=== PATIENT | female | born 1950 | race Hispanic/Latino ===

== ENCOUNTER → 2018-11-14 | Outpatient (CLI) | payer OTHER ==
[~2018-11-14] MED LIST: ATOR40TA71 PO; DIPH25CA7 PO; DONE10TA43 PO; ESCI10TA54 PO
== END | disposition home or self-care (01) ==
LOC: SHCH 07:57
PROVIDERS: ATTEND Internal Medicine Cardiovascular Disease
DX: I35.0 Nonrheumatic aortic (valve) stenosis (principal); I70.0 Atherosclerosis of aorta; Z95.0 Presence of cardiac pacemaker
CPT/HCPCS: 93306

== ENCOUNTER 2019-02-26 15:23 | Emergency (ER) | payer OTHER ==
[2019-02-26 15:48] LABS: EOSINOPHILS % (AUTO) 1.7 % (0.0-8.0); HEMATOCRIT 40.8 % (36-48); LYMPHOCYTES % (AUTO) 21.6 % (21.0-51.0); MEAN CORPUSCULAR HEMOGLOBIN 28.9 pg (27.0-33.0); MEAN CORPUSCULAR HGB CONC 33.5 g/dL (32.0-36.0); MEAN CORPUSCULAR VOLUME 86.3 fL (79-99); MONOCYTES % (AUTO) 7.5 % (3.0-13.0); NEUTROPHILS % (AUTO) 68.2 % (40.0-77.0); PLATELET COUNT (AUTO) 306 K/uL (130-400); RED BLOOD CELL COUNT(AUTO) 4.73 MIL/uL (4.00-5.50); RED CELL DISTRIBUTION WIDTH 13.6 % (11.0-15.5); WHITE BLOOD COUNT (AUTO) 11.2 K/uL (4.8-10.8)
[2019-02-26] MEDS ORDERED: NITROGLYCERIN 1GM/1 INCH PACKET TD ONE (15:48)
[2019-02-26 16:08] LABS: CREATININE 0.9 mg/dL (0.5-1.5); POTASSIUM 3.9 mmol/L (3.5-5.1)
[2019-02-26 16:11] LABS: INR 0.99 (0.85-1.15); PARTIAL THROMBOPLASTIN TIME 25.7 SEC (26.3-35.5); PROTHROMBIN TIME 10.4 SEC (9.6-11.6)
[2019-02-26 16:13] LABS: ALBUMIN 3.5 g/dL (3.5-5.0); BILIRUBIN,TOTAL 0.3 mg/dL (0.2-1.0); TOTAL PROTEIN, SERUM 7.6 g/dL (6.0-8.3)
== END 2019-02-26 20:28 | disposition home or self-care (01) ==
LOC: EDH 15:23
DX: R07.89 Other chest pain (principal); G30.9 Alzheimer's disease, unspecified; F02.80 Dementia in other diseases classified elsewhere, unspecified severity, without behavioral disturbance, psychotic disturbance, mood disturbance, and anxiety; Z88.6 Allergy status to analgesic agent
CPT/HCPCS: 36415; 71045; 80053; 82550; 84484; 85025; 85610; 85730; 93005

== ENCOUNTER → 2019-04-04 | Outpatient (CLI) | payer OTHER ==
[~2019-04-04] VITALS: Ht 157.5 cm; Wt 96.6 kg
[~2019-04-04] MED LIST changes: +REGADENOSON 0.4 MG/5 ML PF SYG IVP SCH
== END | disposition home or self-care (01) ==
LOC: SHCH 07:28
PROVIDERS: ATTEND Internal Medicine Cardiovascular Disease
DX: I25.10 Atherosclerotic heart disease of native coronary artery without angina pectoris (principal)
CPT/HCPCS: 78452; 93017; 96374; A9500 ×2; J2785

== ENCOUNTER → 2019-11-27 | Outpatient (CLI) | payer OTHER ==
[~2019-11-27] MED LIST changes: +DIPH25CA53 PO; -DIPH25CA7 PO; -REGADENOSON 0.4 MG/5 ML PF SYG IVP SCH
== END | disposition home or self-care (01) ==
LOC: SHCH 15:09
PROVIDERS: ATTEND Internal Medicine Cardiovascular Disease
DX: I35.0 Nonrheumatic aortic (valve) stenosis (principal); Z95.0 Presence of cardiac pacemaker
CPT/HCPCS: 93306

== ENCOUNTER 2019-12-11 07:00 | Day surgery (SDC) | payer OTHER ==
[2019-12-08 08:54] VITALS: BP 166/91
[2019-12-08 09:01] LABS: BASOPHILS % (AUTO) 0.6 % (0.0-5.0); HEMATOCRIT 42.6 % (36-48); LYMPHOCYTES % (AUTO) 21.9 % (21.0-51.0); MEAN CORPUSCULAR HEMOGLOBIN 28.2 pg (27.0-33.0); MEAN CORPUSCULAR HGB CONC 32.2 g/dL (32.0-36.0); MEAN CORPUSCULAR VOLUME 87.7 fL (79-99); MONOCYTES % (AUTO) 5.2 % (3.0-13.0); PLATELET COUNT (AUTO) 311 K/uL (130-400); RED BLOOD CELL COUNT(AUTO) 4.86 MIL/uL (4.00-5.50); WHITE BLOOD COUNT (AUTO) 8.7 K/uL (4.8-10.8)
[2019-12-08 09:01] LABS: APPEARANCE,URINE Clear (CLEAR); BILIRUBIN,URINE Negative (NEGATIVE); COLOR,URINE Yellow (YELLOW); GLUCOSE, URINE (UA) Negative (NEGATIVE); KETONES,URINE Negative (NEGATIVE); LEUKOCYTE ESTERASE ,URINE Moderate (NEGATIVE); NITRATE,URINE Negative (NEGATIVE); OCCULT BLOOD,URINE Negative (NEGATIVE); PH,URINE 7.5 (5.0-8.0); PROTEIN,URINE Negative (NEGATIVE)
[2019-12-08 09:09] LABS: CREATININE 0.8 mg/dL (0.5-1.5); POTASSIUM 4.3 mmol/L (3.5-5.1)
[2019-12-08 09:12] LABS: INR 1.02 (0.85-1.15); PARTIAL THROMBOPLASTIN TIME 26.1 SEC (26.3-35.5); PROTHROMBIN TIME 10.7 SEC (9.6-11.6)
[2019-12-08 09:14] LABS: BACTERIA,URINE Rare /HPF (None Seen); RBC,URINE 0-1 /HPF (0-1); SQUAMOUS EPITHELIAL CELL,UR Rare /HPF (0-2); WBC,URINE 0-1 /HPF (0-1)
[~2019-12-11] VITALS: Ht 162.6 cm; Wt 95.6 kg
[2019-12-11] VITALS (9 sets, daily range): BP systolic 124–151; BP diastolic 60–72
[~2019-12-11 07:00] MED LIST changes: +DIPH-764 PO; -DIPH25CA53 PO; -ESCI10TA54 PO; +MULT-1258 PO; +P-EP-94 PO; +milk thistle PO
--- NOTE | 2019-12-11 08:00 | NUR ---
PRE-PROCEDURE RECEIVED TO DAY 14 VIA AMBULATING FOR SCHEDULED LHC. AWAKE IN NO ACUTE DISTRESS. DENIES PAIN. PACEMAKER PRESENT TO LEFT UPPER CHEST WALL. CONNECTED TO CONTINUOUS CARDIOPULMONARY MONITORING. SIDE RAILS UP X2, BED IN LOWEST POSITION, AND CALL LIGHT W/IN REACH.
[2019-12-11] MEDS ORDERED: SODIUM CHLORIDE 0.9% 1000ML 1,000 ML IV ONE (08:13)
--- NOTE | 2019-12-11 09:40 | NUR ---
PROCEDURE TRANSFERRED TO BRANCH LENDING MANAGER VIA BED BY JS MANN RN. AWAKE IN NO ACUTE DISTRESS.
[2019-12-11] MEDS ORDERED: IOHEXOL 350 MG/ML 100ML INFUS..BTL IV ONE (09:57)
[2019-12-11] MEDS ORDERED: MIDAZOLAM HCL 1 MG/ML 2ML VIAL ONE (09:57)
[2019-12-11] MEDS ORDERED: HEPARIN SODIUM 1000UNIT/ML 10ML VIAL ONE (09:57)
[2019-12-11] MEDS ORDERED: LIDOCAINE HCL 2% 20ML ONE (09:58)
[2019-12-11] MEDS ORDERED: NITROGLYCERIN 50 MG/D5% WATER 1 BOT ONE (09:58)
--- NOTE | 2019-12-11 10:40 | NUR ---
POST-PROCEDURE RECEIVED FROM GLUE SPECIALTY SUPERVISOR VIA BED S/P [facility]. AWAKE IN NO ACUTE DISTRESS. DENIES PAIN. CONNECTED TO CONTINUOUS CARDIOPULMONARY MONITORING. CATH SITE W/ANGIOSEAL CLEAN, DRY, AND INTACT;SITE SOFT & NON-TENDER. EDUCATED PT AND SPOUSE ON IMPORTANCE OF KEEPING RIGHT LEG STRAIGHT AND FREE OF MOVEMENT AND HEAD FLAT. BOTH VERBALIZED UNDERSTANDING. SIDE RAILS UP X2, BED IN LOWEST POSITION, AND CALL LIGHT W/IN REACH.
--- NOTE | 2019-12-11 11:00 | NUR ---
DIET ATE 100% OF LUNCH.
--- NOTE | 2019-12-11 13:27 | NUR ---
ACTIVITY HEAD OF BED ELEVATED TO 30 DEGREES. CATH SITE WITH ANGIOSEAL CLEAN, DRY, AND INTACT;SITE SOFT,NON-TENDER.
--- NOTE | 2019-12-11 14:10 | NUR ---
ACTIVITY UP TO CHAIR WITH STANDBY ASSIST X1. GAIT STEADY. RIGHT FEMORAL CATH SITE W/ ANGIOSEAL CLEAN, DRY, AND INTACT;SITE SOFT,NON-TENDER.
--- NOTE | 2019-12-11 14:30 | NUR ---
DISCHARGE INSTRUCTIONS DAY PT DISCHARGE INSTRUCTION SHEET, MED REC, AND PT SUMMARY REVIEWED WITH PT AND SPOUSE. EDUCATED IF PUNCTURE SITE STARTS BLEEDING, APPLY DIRECT PRESSURE OVER THE AREA AND SEEK MEDICAL ATTENTION. BOTH VERBALIZED UNDERSTANDING. OPPORTUNITY GIVEN TO ASK QUESTIONS. QUESTIONS ADDRESSED.
--- NOTE | 2019-12-11 14:45 | NUR ---
DISCHARGE DISCHARGED VIA W/C. AWAKE IN NO ACUTE DISTRESS.
== END 2019-12-11 14:45 | disposition home or self-care (01) ==
LOC: DAH 07:00
PROVIDERS: ATTEND Internal Medicine Cardiovascular Disease
DX: I35.0 Nonrheumatic aortic (valve) stenosis (principal); I25.10 Atherosclerotic heart disease of native coronary artery without angina pectoris; I48.91 Unspecified atrial fibrillation; F32.9 Major depressive disorder, single episode, unspecified; F03.90 Unspecified dementia, unspecified severity, without behavioral disturbance, psychotic disturbance, mood disturbance, and anxiety; Z88.8 Allergy status to other drugs, medicaments and biological substances; Z88.2 Allergy status to sulfonamides; Z88.1 Allergy status to other antibiotic agents; Z95.0 Presence of cardiac pacemaker; Z79.899 Other long term (current) drug therapy; Z83.3 Family history of diabetes mellitus
CPT/HCPCS: 36415; 71045; 80048; 81001; 85025; 85610; 85730; 93005; 93454; A4215; A4216; A4221; A4222; A4223 ×2; A4606; A4663; C1760; C1894; J1644; J3490 ×2; J7030; Q9965; Q9967; J2250

== ENCOUNTER 2020-01-12 14:00 | Inpatient (IN) | payer OTHER ==
[~2020-01-12] VITALS: Ht 162.6 cm; Wt 95.2 kg
[2020-01-12 14:00] VITALS: BP 186/88
[2020-01-12 16:52] LABS: BASOPHILS % (AUTO) 0.4 % (0.0-5.0); EOSINOPHILS % (AUTO) 2.3 % (0.0-8.0); HEMATOCRIT 41.6 % (36-48); LYMPHOCYTES % (AUTO) 29.1 % (21.0-51.0); MEAN CORPUSCULAR HGB CONC 32.9 g/dL (32.0-36.0); MEAN CORPUSCULAR VOLUME 88.1 fL (79-99); MONOCYTES % (AUTO) 6.9 % (3.0-13.0); PLATELET COUNT (AUTO) 320 K/uL (130-400); RED BLOOD CELL COUNT(AUTO) 4.72 MIL/uL (4.00-5.50); RED CELL DISTRIBUTION WIDTH 12.8 % (11.0-15.5); WHITE BLOOD COUNT (AUTO) 9.2 K/uL (4.8-10.8)
[2020-01-12 17:06] LABS: PARTIAL THROMBOPLASTIN TIME 25.9 SEC (26.3-35.5); PROTHROMBIN TIME 10.8 SEC (9.6-11.6)
[2020-01-12 17:08] LABS: CREATININE 0.9 mg/dL (0.5-1.5); HEMOGLOBIN A1C 6.2 % (4.0-6.0); POTASSIUM 3.8 mmol/L (3.5-5.1)
[2020-01-15] VITALS (50 sets, daily range): BP systolic 105–193; BP diastolic 48–82
[2020-01-15] MEDS ORDERED: EPINEPHRINE 10 MG in SODIUM CHLORIDE 0.9% 240 ML IV PRN (06:15)
[2020-01-15] MEDS ORDERED: AMINOCAPROIC ACID 15,000 MG in SODIUM CHLORIDE 0.9% 500ML 420 ML IV PRN (06:15)
[2020-01-15] MEDS ORDERED: NOREPINEPHRINE BITARTRATE 8 MG in DEXTROSE 5%-WATER 250 ML IV PRN (06:15)
[2020-01-15] MEDS ORDERED: CEFUROXIME SODIUM 1.5 GM VIAL ONE (06:46)
[2020-01-15] MEDS ORDERED: SODIUM CHLORIDE 0.9% 1000ML 1,000 ML IV ONE (06:46)
--- NOTE | 2020-01-15 06:58 | NUR ---
POTENTIAL FOR INFECTION: SHAVED BILATERAL GROIN AREA TO ABOVE KNEE PER RENATA MARTINEZ, FOLLOWED BY WIPING WITH WILDER: 2% CHLORHEXIDINE GLUCONATE CLOTH PATIENTS PRE-OP SKIN PREP.
[2020-01-15] MEDS ORDERED: NITROGLYCERIN 50 MG/D5% WATER 1 BOT ONE (07:21)
[2020-01-15] MEDS ORDERED: CEFAZOLIN SODIUM 1 GM VIAL ONE (07:22)
[2020-01-15] MEDS ORDERED: SUFENTANIL CITRATE 50 MCG/ML AMP ONE (07:36)
[2020-01-15] MEDS ORDERED: MIDAZOLAM HCL 1 MG/ML 5ML VIAL ONE (07:36)
[2020-01-15] MEDS ORDERED: ROCURONIUM 10MG/1ML SYR 10 MG/ML ML ONE (07:40)
[2020-01-15] MEDS ORDERED: DELNIDO FORMULA 1 BAG IV ONE (07:44)
[2020-01-15] MEDS ORDERED: CEFUROXIME SODIUM 1.5 GM VIAL IVP ONE (08:00)
[2020-01-15 08:14] LABS: ABG BASE EXCESS -1.3 mmol/L (-2.0-3.0); ABG HCO3 23.5 mmol/L (21.0-28.0); ABG PCO2 40 mmHg (32-45)
[2020-01-15] MEDS ORDERED: SODIUM CHLORIDE 0.9% 500ML 500 ML IV SCH (08:17)
[2020-01-15] MEDS ORDERED: ALBUMIN (HUMAN) 5% 250 ML IV PRN (08:30)
[2020-01-15] MEDS ORDERED: NOREPINEPHRINE 4MG/NS 250ML 250 ML IV PRN (08:30)
[2020-01-15] MEDS ORDERED: MORPHINE SULFATE 2 MG/ML 1ML SYG IV PRN (08:30)
[2020-01-15] MEDS ORDERED: TRAMADOL HCL 50 MG TABLET PO PRN (08:30)
[2020-01-15] MEDS ORDERED: SODIUM CHLORIDE 0.9% 250 ML IV PRN (08:30)
[2020-01-15] MEDS ORDERED: AMINOCAPROIC ACID 15,000 MG in SODIUM CHLORIDE 0.9% 250 ML IV SCH (08:30)
[2020-01-15] MEDS ORDERED: GLUCAGON 1MG KIT 1 MG ML IM PRN (08:30)
[2020-01-15] MEDS ORDERED: PROPOFOL 1000 MG/100 ML 100 ML IV PRN (08:30)
[2020-01-15] MEDS ORDERED: EPINEPHRINE 10 MG in DEXTROSE 5%-WATER 250 ML IV PRN (08:30)
[2020-01-15] MEDS ORDERED: SODIUM CHLORIDE 0.9% 10 ML VIAL IVP PRN (08:30)
[2020-01-15] MEDS ORDERED: NITROGLYCERIN 50 MG/D5% WATER 250 BOT IV SCH (08:30)
[2020-01-15] MEDS ORDERED: ACETAMINOPHEN 650 MG SUPPOSITORY RC PRN (08:30)
[2020-01-15] MEDS ORDERED: MORPHINE SULFATE 4 MG/1ML SYG IV PRN (08:30)
[2020-01-15] MEDS ORDERED: SODIUM CHLORIDE 0.9% 1000ML 1,000 ML IV SCH (08:30)
[2020-01-15] MEDS ORDERED: POTASSIUM PHOS 15 mMOL+NS250ML 250 ML IV PRN (08:30)
[2020-01-15] MEDS ORDERED: ONDANSETRON HCL 4 MG/2 ML VIAL IV PRN (08:30)
[2020-01-15] MEDS ORDERED: ACETAMINOPHEN 325 MG TAB PO PRN ×2 (08:30)
[2020-01-15] MEDS ORDERED: DEXTROSE 50%-WATER 50 ML DISP.SYRIN IV PRN (08:30)
[2020-01-15] MEDS ORDERED: CALCIUM GLUCONATE 1 GM in SODIUM CHLORIDE 0.9% 50 ML IV PRN (08:30)
[2020-01-15] MEDS: FAMOTIDINE/PF 20 MG/2 ML VIAL IV SCH ×2 (09:00→20:34)
[2020-01-15 09:04] LABS: ABG BASE EXCESS -1.1 mmol/L (-2.0-3.0); ABG HCO3 23.2 mmol/L (21.0-28.0); ABG OXYGEN SATURATION 98.5 % (95.0-99.0); ABG PCO2 37 mmHg (32-45)
[2020-01-15] MEDS ORDERED: ROPIVACAINE 0.5% 5MG/ML 30ML IJ ONE (09:27)
[2020-01-15] MEDS ORDERED: PROTAMINE SULFATE 10 MG/ML 25ML VIAL IV ONE (09:40)
[2020-01-15] MEDS ORDERED: AMIODARONE HCL 50 MG/ML 3 ML VIAL ONE (09:41)
[2020-01-15] MEDS ORDERED: GLYCOPYRROLATE 1 MG/5 ML SYRINGE ONE (09:44)
[2020-01-15 09:47] LABS: ABG BASE EXCESS 4.3 mmol/L (-2.0-3.0); ABG HCO3 25.7 mmol/L (21.0-28.0); ABG OXYGEN SATURATION 98.5 % (95.0-99.0); ABG PCO2 27 mmHg (32-45)
[2020-01-15] MEDS: INSULIN REGULAR, HUMAN 3ML 100 UNIT in SODIUM CHLORIDE 0.9% 99 ML IV SCH ×2 (10:01)
[2020-01-15 10:19] LABS: ABG HCO3 20.3 mmol/L (21.0-28.0); ABG OXYGEN SATURATION 96.5 % (95.0-99.0); ABG PCO2 38 mmHg (32-45)
--- NOTE | 2020-01-15 10:43 | NUR ---
PT WAS ADMITTED TO ROOM 213 VIA CV BED AND WAS ACCOMPANIED BY DR. Garcia AND OR STAFF. PT WAS CONNECTED TO VENTILATOR AT PRESCRIBED SETTINGS AND TO HEPATOLOGIST. SEE DOCUMENTATION OF V/S AND ASSESSMENT.
[2020-01-15 11:05] LABS: ABG BASE EXCESS -1.4 mmol/L (-2.0-3.0); ABG HCO3 24.3 mmol/L (21.0-28.0); ABG OXYGEN SATURATION 96.3 % (95.0-99.0); ABG PCO2 45 mmHg (32-45)
--- NOTE | 2020-01-15 11:20 | NUR ---
PT'S IN TO SEE HER AND WAS ADVISED OF THE PRESENT STATUS AND WHEN HE COULD VISIT AGAIN UNTIL 9AM. WAS DISAPPOINTED THAT HE WOULD HAVE TO LEAVE AND UNABLE TO STAY AT HER SIDE, HE WAS ADVISED THAT HE COULD CALL AT ANY AND MANY TIMES HE WANTED TO CHECK ON HER. HIS CONCERN WAS THAT SHE HAS DEMENTIA AND WOULD BE SCARED IF HE WAS NOT AROUND. AGAIN HE WAS REASSURED OF THE ABILITY TO CHECK ON HER.
[2020-01-15 11:30] LABS: MEAN CORPUSCULAR HEMOGLOBIN 28.9 pg (27.0-33.0); MEAN CORPUSCULAR VOLUME 87.5 fL (79-99); PLATELET COUNT (AUTO) 164 K/uL (130-400); RED BLOOD CELL COUNT(AUTO) 3.77 MIL/uL (4.00-5.50); RED CELL DISTRIBUTION WIDTH 12.9 % (11.0-15.5)
[2020-01-15 11:34] LABS: WHITE BLOOD COUNT (AUTO) 30.6 K/uL (4.8-10.8)
[2020-01-15 11:43] LABS: INR 1.3 (0.85-1.15); PARTIAL THROMBOPLASTIN TIME 27.3 SEC (26.3-35.5); PROTHROMBIN TIME 13.9 SEC (9.6-11.6)
[2020-01-15 11:44] LABS: CREATININE 0.8 mg/dL (0.5-1.5); MAGNESIUM 2.4 mg/dL (1.80-2.40)
[2020-01-15] MEDS: POTASSIUM CHLORIDE 20MEQ/100ML 100 ML IV PRN ×4 (11:53→18:14)
[2020-01-15] MEDS ORDERED: ROPIVACAINE 0.2% 2MG/ML 100ML VIAL IJ ONE (12:00)
[2020-01-15] MEDS ORDERED: Q-PUMP 1 EACH IRRIG SCH (12:15)
[2020-01-15 12:31] LABS: ABG BASE EXCESS 2.1 mmol/L (-2.0-3.0); ABG HCO3 26.8 mmol/L (21.0-28.0); ABG OXYGEN SATURATION 97.9 % (95.0-99.0); ABG PCO2 42 mmHg (32-45)
[2020-01-15 12:33] LABS: BAND NEUTROPHILS % (MANUAL) 6 % (0-2); LYMPHOCYTES % (MANUAL) 10 % (22-44); MAN.DIFF COMMENT-IMPRESSION MANUAL DIFFERENTIAL; MONOCYTES % (MANUAL) 3 % (2-9); PLATELET MORPHOLOGY COMMENT ADEQUATE; SEGMENTED NEUTROPHILS % 81 % (40-70)
[2020-01-15] MEDS ORDERED: MANNITOL 25% 50ML VIAL IV ONE (13:16)
[2020-01-15] MEDS ORDERED: HEPARIN SODIUM 1000UNIT/ML 10ML VIAL IV ONE (13:16)
[2020-01-15] MEDS ORDERED: AMINOCAPROIC ACID 250 MG/ML 20 ML VIAL IV ONE (13:16)
[2020-01-15] MEDS ORDERED: CALCIUM CHLORIDE 100 MG/ML 10 ML SYG IVP ONE (13:16)
[2020-01-15] MEDS ORDERED: PHENYLEPHRINE HCL 10 MG/ML 1ML VIAL IV ONE (13:16)
[2020-01-15] MEDS ORDERED: MAGNESIUM SULFATE 1 GM/2 ML VIAL IM ONE (13:16)
[2020-01-15] MEDS ORDERED: SODIUM BICARB 8.4% 50ML SYRINGE IVP ONE (13:16)
[2020-01-15] MEDS ORDERED: ALBUMIN (HUMAN) 25% 50 ML IV ONE (13:16)
[2020-01-15] MEDS: CEFAZOLIN SODIUM 1 GM VIAL IV SCH ×2 (14:08→20:34)
[2020-01-15] MEDS ORDERED: IBUP-2784 PO (15:20)
[2020-01-15] MEDS ORDERED: TEA30SPR TP (15:20)
[2020-01-15] MEDS ORDERED: TRAZ-185 PO (15:20)
[2020-01-15 15:52] LABS: ABG BASE EXCESS -3.5 mmol/L (-2.0-3.0); ABG HCO3 22.2 mmol/L (21.0-28.0); ABG OXYGEN SATURATION 97.3 % (95.0-99.0); ABG PCO2 42 mmHg (32-45)
[2020-01-15] MEDS: SODIUM BICARB 50MEQ 50ML VIAL IV PRN ×2 (16:12→19:23)
[2020-01-15 18:02] LABS: CREATININE 1.3 mg/dL (0.5-1.5); POTASSIUM 3.4 mmol/L (3.5-5.1)
--- NOTE | 2020-01-15 19:00 | NUR ---
Received report from JUSTIN RN at 1900. Patient continues to be on ventilator, chest tube and galindo catheter in place, insulin, Epi and levo running into RIJ. Patient wakes up and responds appropriately, however, still lethargic and unable to systane wakefulness.
[2020-01-15 19:10] LABS: ABG BASE EXCESS -2.3 mmol/L (-2.0-3.0); ABG HCO3 23.4 mmol/L (21.0-28.0); ABG OXYGEN SATURATION 97.3 % (95.0-99.0); ABG PCO2 44 mmHg (32-45)
[2020-01-15] MEDS: ATORVASTATIN CALCIUM 40 MG TABLET PO SCH (20:34)
[2020-01-15] MEDS: DONEPEZIL HCL 5 MG TAB PO SCH (20:34)
[2020-01-15 21:05] LABS: ABG BASE EXCESS 2.2 mmol/L (-2.0-3.0); ABG HCO3 26.5 mmol/L (21.0-28.0); ABG OXYGEN SATURATION 96.2 % (95.0-99.0); ABG PCO2 40 mmHg (32-45)
--- NOTE | 2020-01-15 21:10 | NUR ---
Extubated patient to 40%Fio2 aerosol mask at 0. Tolerated procedure well.
--- NOTE | 2020-01-15 21:18 | NUR ---
Patient more alert at 194, vent rate dropped to 8 at 1954, to 6 at 2029 and 4 at 2044 as per protocol. Patient tolerated spontaneous breaths and VC and NIF was in parameters for extubation. Obtained an ABG at 2101 which was within parameters for extubation.
[2020-01-15 22:24] LABS: ABG BASE EXCESS 5.4 mmol/L (-2.0-3.0); ABG HCO3 31.1 mmol/L (21.0-28.0); ABG PCO2 50 mmHg (32-45)
[2020-01-16] VITALS (67 sets, daily range): BP systolic 111–176; BP diastolic 44–72
[2020-01-16 00:10] LABS: ABG BASE EXCESS 5.8 mmol/L (-2.0-3.0); ABG HCO3 31.1 mmol/L (21.0-28.0); ABG OXYGEN SATURATION 95.7 % (95.0-99.0); ABG PCO2 48 mmHg (32-45)
[2020-01-16 04:24] LABS: HEMATOCRIT 36.1 % (36-48); MEAN CORPUSCULAR HEMOGLOBIN 28.5 pg (27.0-33.0); MEAN CORPUSCULAR VOLUME 86.4 fL (79-99); PLATELET COUNT (AUTO) 85 K/uL (130-400); RED BLOOD CELL COUNT(AUTO) 4.18 MIL/uL (4.00-5.50); RED CELL DISTRIBUTION WIDTH 13.2 % (11.0-15.5); WHITE BLOOD COUNT (AUTO) 22.7 K/uL (4.8-10.8)
[2020-01-16] MEDS ORDERED: CALCIUM GLUCONATE 1 GM/10 ML VIAL IV ONE (04:32)
[2020-01-16 04:39] LABS: INR 1.05 (0.85-1.15); PARTIAL THROMBOPLASTIN TIME 24.8 SEC (26.3-35.5); PROTHROMBIN TIME 11.3 SEC (9.6-11.6)
[2020-01-16] MEDS: CEFAZOLIN SODIUM 1 GM VIAL IV SCH (04:45)
[2020-01-16 04:49] LABS: CREATININE 0.9 mg/dL (0.5-1.5); MAGNESIUM 1.8 mg/dL (1.80-2.40); PHOSPHORUS 3.6 mg/dL (2.5-4.9); POTASSIUM 4.1 mmol/L (3.5-5.1)
[2020-01-16 05:04] LABS: ABG BASE EXCESS 2.4 mmol/L (-2.0-3.0); ABG HCO3 27.5 mmol/L (21.0-28.0); ABG OXYGEN SATURATION 96.4 % (95.0-99.0); ABG PCO2 44 mmHg (32-45)
[2020-01-16] MEDS: MAGNESIUM 2GM PREMIX 50ML 50 ML IV PRN (05:04)
--- NOTE | 2020-01-16 07:00 | NUR ---
DR EMMANUEL AT BEDSIDE TO ASSESS PATIENT, NEW ORDERS GIVEN
[2020-01-16] MEDS: FUROSEMIDE 10 MG/ML 2ML VIAL IV SCH ×2 (08:17→20:54)
[2020-01-16] MEDS: FAMOTIDINE/PF 20 MG/2 ML VIAL IV SCH ×2 (08:17→20:53)
[2020-01-16] MEDS: LOSARTAN 50 MG TABLET PO SCH (08:18)
[2020-01-16] MEDS: INSULIN REGULAR, HUMAN 3ML 100 UNIT in SODIUM CHLORIDE 0.9% 99 ML IV SCH ×2 (09:56)
[2020-01-16] MEDS: TRAMADOL HCL 50 MG TABLET PO PRN ×2 (13:11→22:26)
--- NOTE | 2020-01-16 16:49 | NUR ---
INITIAL Patient lives with spouse, Duane Shaffer, [phone]. No home services or DME. Patient reports that she is able to complete ADL's independently and drives. PCP is Dr. Wilner Smith. Pharmacy is [facility] located on [address] [facility] [facility] in [place]. DCP is home. Addendum: 01/16/20 at 1650 by CAMDEN COMBS SS Amended: Links added.
[2020-01-16] MEDS: DONEPEZIL HCL 5 MG TAB PO SCH (20:54)
[2020-01-16] MEDS: ATORVASTATIN CALCIUM 40 MG TABLET PO SCH (20:54)
[2020-01-17] VITALS (47 sets, daily range): BP systolic 93–225; BP diastolic 49–225
[2020-01-17 04:28] LABS: HEMATOCRIT 33.9 % (36-48); MEAN CORPUSCULAR HEMOGLOBIN 28.9 pg (27.0-33.0); MEAN CORPUSCULAR HGB CONC 32.7 g/dL (32.0-36.0); MEAN CORPUSCULAR VOLUME 88.3 fL (79-99); PLATELET COUNT (AUTO) 69 K/uL (130-400); RED BLOOD CELL COUNT(AUTO) 3.84 MIL/uL (4.00-5.50); RED CELL DISTRIBUTION WIDTH 13.2 % (11.0-15.5); WHITE BLOOD COUNT (AUTO) 24.9 K/uL (4.8-10.8)
[2020-01-17 04:38] LABS: CREATININE 0.8 mg/dL (0.5-1.5); POTASSIUM 3.9 mmol/L (3.5-5.1)
[2020-01-17 06:19] LABS: MAGNESIUM 1.9 mg/dL (1.80-2.40); PHOSPHORUS 3.1 mg/dL (2.5-4.9)
[2020-01-17] MEDS: MAGNESIUM 2GM PREMIX 50ML 50 ML IV PRN (06:56)
[2020-01-17] MEDS: POTASSIUM CHLORIDE 20MEQ/100ML 100 ML IV PRN (06:57)
--- NOTE | 2020-01-17 07:00 | NUR ---
PER REPORT FROM FAUSTINA MANN RN, ARTERIAL LINE HAS NOT BEEN WORKING SINCE 0400 THIS AM, NO READING NOTED, OR BLOOD RETURN NOTED, GABY DISCONTINUED, CATHETER INTACT, PRESSURE APPLIED TO SITE, COVERED WITH 4X4 GAUZES, AND SECURED WITH OPSITE. SBP NOTED IN THE 130'S. AAOX2, TO PERSON AND PLACE, UNLABORED RESPIRATIONS NOTED
--- NOTE | 2020-01-17 08:00 | NUR ---
DR WORTHY UPDATED WITH AM LABS, X RAY, BARTHOLOMEW OUTPUT, CHEST TUBE OUTPUT, A LINE BEING DISCONTINUED, AND ORDER FOR PLAVIX 75 MG PO DAILY, PER DR EMMANUEL. NEW ORDERS GIVEN PER MD TO DISCONTINUE PLAVIX AND INCREASE FREQUENCY ON LASIX PO TO TID
[2020-01-17] MEDS: LOSARTAN 50 MG TABLET PO SCH (08:32)
[2020-01-17] MEDS: METOPROLOL TARTRATE 25 MG TAB PO SCH ×2 (08:32→21:13)
[2020-01-17] MEDS: FAMOTIDINE/PF 20 MG/2 ML VIAL IV SCH ×2 (08:32→21:13)
[2020-01-17] MEDS ORDERED: CLOPIDOGREL BISULFATE 75 MG TAB PO SCH (09:00)
[2020-01-17] MEDS ORDERED: FUROSEMIDE 20 MG TABLET PO SCH (09:00)
[2020-01-17] MEDS: INSULIN HUMULIN R 100 UNIT/ML 3ML SQ SCH ×3 (11:30→21:00)
[2020-01-17] MEDS: FUROSEMIDE 20 MG TABLET PO SCH ×2 (13:37→21:13)
[2020-01-17] MEDS: DONEPEZIL HCL 5 MG TAB PO SCH (21:13)
[2020-01-17] MEDS: ATORVASTATIN CALCIUM 40 MG TABLET PO SCH (21:14)
[2020-01-17] MEDS: TRAMADOL HCL 50 MG TABLET PO PRN (22:57)
[2020-01-18] VITALS (19 sets, daily range): BP systolic 93–147; BP diastolic 46–84
[2020-01-18 03:57] LABS: BASOPHILS % (AUTO) 0.2 % (0.0-5.0); EOSINOPHILS % (AUTO) 0.7 % (0.0-8.0); HEMATOCRIT 30.1 % (36-48); LYMPHOCYTES % (AUTO) 13.5 % (21.0-51.0); MEAN CORPUSCULAR HEMOGLOBIN 28.5 pg (27.0-33.0); MEAN CORPUSCULAR HGB CONC 32.9 g/dL (32.0-36.0); MEAN CORPUSCULAR VOLUME 86.7 fL (79-99); MONOCYTES % (AUTO) 6.2 % (3.0-13.0); NEUTROPHILS % (AUTO) 78.8 % (40.0-77.0); PLATELET COUNT (AUTO) 55 K/uL (130-400); RED BLOOD CELL COUNT(AUTO) 3.47 MIL/uL (4.00-5.50); RED CELL DISTRIBUTION WIDTH 12.9 % (11.0-15.5); WHITE BLOOD COUNT (AUTO) 18.7 K/uL (4.8-10.8)
[2020-01-18 04:09] LABS: CREATININE 0.8 mg/dL (0.5-1.5); MAGNESIUM 1.9 mg/dL (1.80-2.40); POTASSIUM 3.6 mmol/L (3.5-5.1)
[2020-01-18] MEDS: INSULIN HUMULIN R 100 UNIT/ML 3ML SQ SCH ×4 (06:45→20:54)
[2020-01-18] MEDS: POTASSIUM CHLORIDE 20MEQ/100ML 100 ML IV PRN (06:46)
--- NOTE | 2020-01-18 07:15 | NUR ---
ASSESSMENT PT IS AAOX3 DENIES CP DENIES SOB DENIES NV NO COMPLAINTS RESTING SITTING UP IN CARDIA CHAIR. BREATHING PATTERN IS EVEN AND UNLABORED. NOTED CHEST TUBES IN PLACE TO ATRIUM COLLECTION, NOTED BARTHOLOMEW IN PLACE, NOTED RIGHT IJ CORDIS IN PLACE. ENCOURAGED COUGH AND DEEP BREATHING WITH HEART PILLOW SPLINTING, ENCOURAGED USE OF IS 10XS Q1HR WHILE AWAKE. IS AT BEDSDIDE. STATES THAT HE MARIO HER GLASSES YESTERDAY WHEN SHE WAS IN ROOM 207, NO GLASSES NOTED IN CURRENT ROOM 221 OR IN PREVIOUS ROOM 207, HOUSE KEEP DENIES SEEING ANY GLASSES WELL. CALL LIGHT WITHIN REACH.
--- NOTE | 2020-01-18 08:00 | NUR ---
DR EMMANUEL ROUNDED ORDERS RECEIVED
[2020-01-18] MEDS: METOPROLOL TARTRATE 25 MG TAB PO SCH ×2 (08:04→20:46)
[2020-01-18] MEDS: FAMOTIDINE/PF 20 MG/2 ML VIAL IV SCH ×2 (08:05→20:46)
[2020-01-18] MEDS: FUROSEMIDE 20 MG TABLET PO SCH ×3 (08:05→20:46)
[2020-01-18] MEDS: LOSARTAN 50 MG TABLET PO SCH (08:05)
[2020-01-18] MEDS ORDERED: ENOXAPARIN SODIUM 30 MG/0.3 ML SQ SCH (09:00)
--- NOTE | 2020-01-18 10:58 | NUR ---
CT REMOVAL / BARTHOLOMEW REMOVAL / RIGHT CORDIS REMOVAL ALL TIPS INTACT, TOLERATED WELL NO COMPLAINTS. PT RESTING IN BED. CALL LIGHT WITHIN REACH.
--- NOTE | 2020-01-18 14:45 | NUR ---
DR WORTHY ROUNDED SAW PATIENT, NO NEW ORDERS RECEIVED
--- NOTE | 2020-01-18 15:00 | NUR ---
PATIENT VOIDED UP TO COMMODE, BACK TO RECLINER
[2020-01-18] MEDS: TRAMADOL HCL 50 MG TABLET PO PRN (17:57)
[2020-01-18] MEDS: DONEPEZIL HCL 5 MG TAB PO SCH (20:46)
[2020-01-18] MEDS: ATORVASTATIN CALCIUM 40 MG TABLET PO SCH (20:46)
[2020-01-19 05:20] LABS: BASOPHILS % (AUTO) 0.2 % (0.0-5.0); EOSINOPHILS % (AUTO) 1.9 % (0.0-8.0); LYMPHOCYTES % (AUTO) 16.5 % (21.0-51.0); MEAN CORPUSCULAR HGB CONC 33.4 g/dL (32.0-36.0); MEAN CORPUSCULAR VOLUME 86.7 fL (79-99); MONOCYTES % (AUTO) 7.7 % (3.0-13.0); PLATELET COUNT (AUTO) 84 K/uL (130-400); RED BLOOD CELL COUNT(AUTO) 3.69 MIL/uL (4.00-5.50); RED CELL DISTRIBUTION WIDTH 12.6 % (11.0-15.5)
[2020-01-19 05:46] LABS: CREATININE 0.8 mg/dL (0.5-1.5); POTASSIUM 3.5 mmol/L (3.5-5.1)
[2020-01-19] MEDS: INSULIN HUMULIN R 100 UNIT/ML 3ML SQ SCH ×4 (06:58→21:00)
[2020-01-19 07:37] VITALS: BP 131/68
--- NOTE | 2020-01-19 08:00 | NUR ---
PATIENT IS AWAKE AND ALERT TO PERSON AND PLACE, SITTING IN RECLINER AT THIS TIME. DENIES HAVING PAIN OR DISCOMFORT. REORIENTED PATIENT TO TIME.
[2020-01-19] MEDS: METOPROLOL TARTRATE 25 MG TAB PO SCH ×2 (09:00→21:52)
[2020-01-19] MEDS: FAMOTIDINE/PF 20 MG/2 ML VIAL IV SCH ×2 (09:00→21:52)
[2020-01-19] MEDS: LOSARTAN 50 MG TABLET PO SCH (09:00)
[2020-01-19] MEDS: CLOPIDOGREL BISULFATE 75 MG TAB PO SCH (09:01)
[2020-01-19] MEDS: FUROSEMIDE 20 MG TABLET PO SCH ×3 (09:01→21:52)
[2020-01-19 11:34] VITALS: BP 130/59
--- NOTE | 2020-01-19 14:17 | NUR ---
PATIENT C/O PAIN TO BUTTOCKS. REDNESS TO LEFT BUTTOCK NOTED. MEPILEX DRESSING PLACED. WOUND CARE CONSULTED.
--- NOTE | 2020-01-19 15:43 | NUR ---
[facility] CONSULT PATIENT ASSESSED REQUESTED: PATIENT PRESENTS WITH A DEEP TISSUE INJURY TO LEFT BUTTOCK; [facility] RECOMMENDATIONS SUBMITTED Addendum: 01/19/20 at 1545 by BERTRAND MORA LVN LVN W Amended: Links added.
[2020-01-19 15:49] VITALS: BP 124/65
[2020-01-19 19:45] VITALS: BP 148/68
[2020-01-19] MEDS: ATORVASTATIN CALCIUM 40 MG TABLET PO SCH (21:52)
[2020-01-19] MEDS: DONEPEZIL HCL 5 MG TAB PO SCH (21:52)
[2020-01-20] VITALS (7 sets, daily range): BP systolic 115–152; BP diastolic 46–97
[2020-01-20 04:27] LABS: BASOPHILS % (AUTO) 0.4 % (0.0-5.0); EOSINOPHILS % (AUTO) 2.4 % (0.0-8.0); HEMATOCRIT 32.1 % (36-48); LYMPHOCYTES % (AUTO) 17.8 % (21.0-51.0); MEAN CORPUSCULAR HEMOGLOBIN 28.5 pg (27.0-33.0); MEAN CORPUSCULAR HGB CONC 33.3 g/dL (32.0-36.0); MEAN CORPUSCULAR VOLUME 85.4 fL (79-99); MONOCYTES % (AUTO) 8.3 % (3.0-13.0); NUCLEATED RED BLOOD CELLS 0.1 % (0.0-0.19); PLATELET COUNT (AUTO) 112 K/uL (130-400); RED BLOOD CELL COUNT(AUTO) 3.76 MIL/uL (4.00-5.50); RED CELL DISTRIBUTION WIDTH 12.8 % (11.0-15.5)
[2020-01-20] MEDS: INSULIN HUMULIN R 100 UNIT/ML 3ML SQ SCH ×4 (06:34→20:37)
[2020-01-20] MEDS: METOPROLOL TARTRATE 25 MG TAB PO SCH ×2 (09:10→20:31)
[2020-01-20] MEDS: CLOPIDOGREL BISULFATE 75 MG TAB PO SCH (09:10)
[2020-01-20] MEDS: FUROSEMIDE 20 MG TABLET PO SCH ×2 (09:11→20:31)
[2020-01-20] MEDS: LOSARTAN 50 MG TABLET PO SCH (09:12)
[2020-01-20] MEDS: FAMOTIDINE/PF 20 MG/2 ML VIAL IV SCH (09:12)
[2020-01-20 09:32] LABS: POTASSIUM 3.2 mmol/L (3.5-5.1)
[2020-01-20] MEDS: POTASSIUM CHLORIDE 20MEQ/100ML 100 ML IV PRN (10:02)
[2020-01-20] MEDS: ATORVASTATIN CALCIUM 40 MG TABLET PO SCH (20:30)
[2020-01-20] MEDS: DONEPEZIL HCL 5 MG TAB PO SCH (20:31)
[2020-01-20] MEDS: FAMOTIDINE 20MG TAB 20 MG TAB PO SCH (20:31)
[2020-01-21 00:25] VITALS: BP 143/63
[2020-01-21 04:05] VITALS: BP 130/57
[2020-01-21 04:23] LABS: BASOPHILS % (AUTO) 0.3 % (0.0-5.0); EOSINOPHILS % (AUTO) 2.7 % (0.0-8.0); HEMATOCRIT 30.3 % (36-48); LYMPHOCYTES % (AUTO) 12.2 % (21.0-51.0); MEAN CORPUSCULAR HEMOGLOBIN 29.2 pg (27.0-33.0); MEAN CORPUSCULAR VOLUME 85.8 fL (79-99); MONOCYTES % (AUTO) 7.5 % (3.0-13.0); NEUTROPHILS % (AUTO) 75.7 % (40.0-77.0); NUCLEATED RED BLOOD CELLS 0.1 % (0.0-0.19); PLATELET COUNT (AUTO) 146 K/uL (130-400); RED BLOOD CELL COUNT(AUTO) 3.53 MIL/uL (4.00-5.50); WHITE BLOOD COUNT (AUTO) 17.9 K/uL (4.8-10.8)
[2020-01-21 04:33] LABS: CREATININE 0.9 mg/dL (0.5-1.5); POTASSIUM 3.4 mmol/L (3.5-5.1)
[2020-01-21] MEDS: POTASSIUM CHLORIDE 20MEQ/100ML 100 ML IV PRN (04:54)
[2020-01-21] MEDS: INSULIN HUMULIN R 100 UNIT/ML 3ML SQ SCH ×3 (05:45→16:30)
[2020-01-21 08:07] VITALS: BP 133/64
[2020-01-21] MEDS: METOPROLOL TARTRATE 25 MG TAB PO SCH (08:59)
[2020-01-21] MEDS: FUROSEMIDE 20 MG TABLET PO SCH (09:00)
[2020-01-21] MEDS: FAMOTIDINE 20MG TAB 20 MG TAB PO SCH (09:00)
[2020-01-21] MEDS: LOSARTAN 50 MG TABLET PO SCH (09:00)
[2020-01-21] MEDS: CLOPIDOGREL BISULFATE 75 MG TAB PO SCH (09:00)
[2020-01-21] MEDS ORDERED: METO25 PO (09:53)
[2020-01-21] MEDS ORDERED: CLOP75TA14 PO (09:53)
[2020-01-21 12:12] VITALS: BP 114/53
[2020-01-21 16:00] VITALS: BP 123/67
[2020-02-01] MEDS ORDERED: FURO20TA6 PO (12:27)
[2020-02-01] MEDS ORDERED: DOXY100C2 PO (12:27)
== END 2020-01-21 19:00 | disposition home or self-care (01) | DRG 219 ==
LOC: DAHIP 01-15 05:28 → 2CV 01-15 09:27 → EDSTATUS 01-15 14:00 → 2BH 01-16 05:42 → 2DH 01-18 06:35
PROVIDERS: ADMIT Thoracic Surgery (Cardiothoracic Vascular Surgery); ATTEND Thoracic Surgery (Cardiothoracic Vascular Surgery)
PROC: X2RF032 Replacement of Aortic Valve using Zooplastic Tissue, Rapid Deployment Technique, Open Approach, New Technology Group 2 (ICD-10-PCS; principal; 2020-01-15 07:47)
PROC: 5A1221Z Performance of Cardiac Output, Continuous (ICD-10-PCS; 2020-01-15 07:47)
DX: I35.0 Nonrheumatic aortic (valve) stenosis (principal); I50.33 Acute on chronic diastolic (congestive) heart failure; J98.11 Atelectasis; F03.90 Unspecified dementia, unspecified severity, without behavioral disturbance, psychotic disturbance, mood disturbance, and anxiety; E87.70 Fluid overload, unspecified; R06.89 Other abnormalities of breathing; D69.59 Other secondary thrombocytopenia; F32.9 Major depressive disorder, single episode, unspecified; J98.6 Disorders of diaphragm; R09.02 Hypoxemia; Z88.6 Allergy status to analgesic agent; Z95.0 Presence of cardiac pacemaker
CPT/HCPCS: 36415; 71045; 71046; 80048; 82330; 82435; 82803; 82947; 82948; 83036; 83605; 83735; 84100; 84132; 84295; 85018; 85025; 85027; 85347; 85610; 85730; 86850; 86900; 86901; 86922; 93005; 93313; 93318; 93880; 94002; 94010; 94150; 97039; A4357; A7048; G0378; J0171; J0282; J0610; J0690; J0697; J1644; J1815; J1940; J2150; J2250; J2370; J2405; J2720; J2795; J3475; J3480; J3490; J7030; J7040; J7060; P9045; P9047

== ENCOUNTER 2020-01-27 13:56 | Inpatient (IN) | payer OTHER ==
[~2020-01-27] VITALS: Ht 172.7 cm; Wt 98.3 kg
[2020-01-27 11:20] VITALS: BP 152/66
[~2020-01-27 13:56] MED LIST changes: +CLOP75TA14 PO; +IBUP-2784 PO; +METO25 PO; +TEA30SPR TP; +TRAZ-185 PO
[2020-01-27 14:32] LABS: BASOPHILS % (AUTO) 0.3 % (0.0-5.0); EOSINOPHILS % (AUTO) 1.5 % (0.0-8.0); HEMATOCRIT 32.2 % (36-48); LYMPHOCYTES % (AUTO) 9.5 % (21.0-51.0); MEAN CORPUSCULAR HEMOGLOBIN 28.5 pg (27.0-33.0); MEAN CORPUSCULAR VOLUME 89.2 fL (79-99); MONOCYTES % (AUTO) 5.7 % (3.0-13.0); NEUTROPHILS % (AUTO) 82.5 % (40.0-77.0); PLATELET COUNT (AUTO) 353 K/uL (130-400); RED BLOOD CELL COUNT(AUTO) 3.61 MIL/uL (4.00-5.50); RED CELL DISTRIBUTION WIDTH 14.4 % (11.0-15.5); WHITE BLOOD COUNT (AUTO) 19.5 K/uL (4.8-10.8)
[2020-01-27 14:47] LABS: INR 0.98 (0.85-1.15); PARTIAL THROMBOPLASTIN TIME 26.1 SEC (26.3-35.5); PROTHROMBIN TIME 10.6 SEC (9.6-11.6)
[2020-01-27 14:52] LABS: ALBUMIN 2.8 g/dL (3.5-5.0); BILIRUBIN,TOTAL 0.4 mg/dL (0.2-1.0); TOTAL PROTEIN, SERUM 7.6 g/dL (6.0-8.3)
[2020-01-27 16:12] LABS: B-TYPE NATRIURETIC PEPTIDE 54 pg/mL (0-100)
[2020-01-27 16:12] LABS: APPEARANCE,URINE Clear (CLEAR); BILIRUBIN,URINE Negative (NEGATIVE); COLOR,URINE Yellow (YELLOW); GLUCOSE, URINE (UA) Negative (NEGATIVE); KETONES,URINE Negative (NEGATIVE); LEUKOCYTE ESTERASE ,URINE Negative (NEGATIVE); NITRATE,URINE Negative (NEGATIVE); OCCULT BLOOD,URINE Negative (NEGATIVE); PH,URINE 5.5 (5.0-8.0); PROTEIN,URINE Negative (NEGATIVE)
[2020-01-27] MEDS ORDERED: ZOSYN 3.375GM+NS 50ML 50 ML IV ONE (17:02)
[2020-01-27] MEDS ORDERED: ONDANSETRON HCL 4 MG/2 ML VIAL ONE (18:13)
[2020-01-27] MEDS ORDERED: HYDROMORPHONE 1 MG/1 ML AMP ONE (18:13)
[2020-01-27] MEDS: CEFEPIME HCL 2 GM VIAL IVP SCH (19:15)
[2020-01-27] MEDS ORDERED: ACETAMINOPHEN 325 MG TAB PO PRN ×2 (19:15)
[2020-01-27] MEDS ORDERED: LACTULOSE 20 GM/30 ML UDCUP PO PRN (19:15)
[2020-01-27] MEDS ORDERED: VANCOMYCIN 1GM+NS 250ML 250 ML IV SCH (19:15)
[2020-01-27] MEDS ORDERED: ONDANSETRON HCL 4 MG/2 ML VIAL IV PRN (19:15)
[2020-01-27] MEDS ORDERED: HYDRALAZINE HCL 20 MG/ML VIAL IV PRN (19:15)
[2020-01-27] MEDS ORDERED: MORPHINE SULFATE 2 MG/ML 1ML SYG IVP PRN (19:15)
[2020-01-27] MEDS ORDERED: NITROGLYCERIN 0.4 MG SL TAB SL PRN (19:15)
[2020-01-27] MEDS ORDERED: VANCOMYCIN PROTOCOL PER PHARMACY IV SCH ×2 (20:00→20:15)
[2020-01-27] MEDS ORDERED: VANCOMYCIN 1.5 GM in SODIUM CHLORIDE 0.9% 250 ML IV ONE (20:15)
[2020-01-27] MEDS ORDERED: COMPOUND IV REFRIGERATED 1 EACH IVSOLN MISC PRN (20:30)
[2020-01-27] MEDS ORDERED: CEFEPIME HCL 2 GM VIAL ONE (21:00)
[2020-01-27] MEDS ORDERED: DOXYCYCLINE 100MG+NS 250ML 250 ML IV ONE (21:00)
[2020-01-27 23:30] VITALS: BP 152/66
[2020-01-28] MEDS: DOXYCYCLINE 100MG+NS 250ML 250 ML IV SCH ×3 (00:34→20:36)
[2020-01-28 02:46] LABS: BASOPHILS % (AUTO) 0.3 % (0.0-5.0); EOSINOPHILS % (AUTO) 0.8 % (0.0-8.0); HEMATOCRIT 29.8 % (36-48); LYMPHOCYTES % (AUTO) 9.6 % (21.0-51.0); MEAN CORPUSCULAR HEMOGLOBIN 29.5 pg (27.0-33.0); MEAN CORPUSCULAR HGB CONC 32.2 g/dL (32.0-36.0); MEAN CORPUSCULAR VOLUME 91.7 fL (79-99); MONOCYTES % (AUTO) 6.3 % (3.0-13.0); NEUTROPHILS % (AUTO) 82.3 % (40.0-77.0); PLATELET COUNT (AUTO) 332 K/uL (130-400); RED BLOOD CELL COUNT(AUTO) 3.25 MIL/uL (4.00-5.50); RED CELL DISTRIBUTION WIDTH 14.2 % (11.0-15.5)
[2020-01-28 02:56] LABS: CREATININE 0.9 mg/dL (0.5-1.5)
[2020-01-28 04:41] VITALS: BP 115/60
[2020-01-28] MEDS: VANCOMYCIN 0.75 GM in SODIUM CHLORIDE 0.9% 250 ML IV SCH ×2 (06:36→20:34)
[2020-01-28 07:00] VITALS: BP 120/50
[2020-01-28] MEDS: FAMOTIDINE 20MG TAB 20 MG TAB PO SCH (09:00)
[2020-01-28] MEDS: ENOXAPARIN SODIUM 40 MG/0.4 ML SYRINGE SQ SCH (10:51)
[2020-01-28] MEDS: CEFEPIME HCL 2 GM VIAL IVP SCH ×2 (10:52→20:36)
[2020-01-28 11:00] VITALS: BP 122/68
[2020-01-28 16:00] VITALS: BP 122/58
--- NOTE | 2020-01-28 17:07 | NUR ---
INITIAL: Pt currently in isolation. Call placed to pt's room. Spoke w pt via phone. Pt mentions that prior to admission she was independent w ambulation and ADLs. She does not own any DME or services. Per pt see feels safe and comfortable to return home at co. CM to continue to follow and wait for Md recommendations. Addendum: 01/28/20 at 1708 by SUDEEP HARRIS Amended: Links added.
[2020-01-28] MEDS: IPRATROPIUM/ALBUTEROL SULFATE 3 ML SOLUTION IH SCH ×2 (18:00→22:40)
[2020-01-28 19:45] VITALS: BP 141/82
[2020-01-29] VITALS (7 sets, daily range): BP systolic 108–152; BP diastolic 52–75
[2020-01-29] MEDS: IPRATROPIUM/ALBUTEROL SULFATE 3 ML SOLUTION IH SCH ×3 (00:34→10:13)
[2020-01-29] MEDS: VANCOMYCIN 0.75 GM in SODIUM CHLORIDE 0.9% 250 ML IV SCH (06:28)
[2020-01-29] MEDS: DOXYCYCLINE 100MG+NS 250ML 250 ML IV SCH ×2 (09:16→19:15)
[2020-01-29] MEDS: CEFEPIME HCL 2 GM VIAL IVP SCH ×2 (09:16→19:15)
[2020-01-29] MEDS: ENOXAPARIN SODIUM 40 MG/0.4 ML SYRINGE SQ SCH (09:18)
[2020-01-29] MEDS: FAMOTIDINE 20MG TAB 20 MG TAB PO SCH (09:42)
[2020-01-29] MEDS ORDERED: VANCOMYCIN 1.5 GM in SODIUM CHLORIDE 0.9% 250 ML IV SCH (13:00)
[2020-01-29] MEDS ORDERED: DELNIDO FORMULA 1 BAG IV ONE (16:05)
[2020-01-29] MEDS ORDERED: TRAZODONE HCL 50 MG TAB PO PRN (20:15)
[2020-01-29] MEDS: METOPROLOL TARTRATE 25 MG TAB PO SCH (21:00)
[2020-01-29] MEDS: VANCOMYCIN 1GM+NS 250ML 250 ML IV SCH (21:00)
[2020-01-29] MEDS: FUROSEMIDE 20 MG TABLET PO SCH (21:00)
[2020-01-29] MEDS: MULTIVITAMIN TABLET PO SCH (21:00)
[2020-01-30 04:39] VITALS: BP 156/70
[2020-01-30 05:14] LABS: BASOPHILS % (AUTO) 0.3 % (0.0-5.0); EOSINOPHILS % (AUTO) 1.7 % (0.0-8.0); HEMATOCRIT 29.5 % (36-48); LYMPHOCYTES % (AUTO) 15.2 % (21.0-51.0); MEAN CORPUSCULAR HEMOGLOBIN 28.5 pg (27.0-33.0); MEAN CORPUSCULAR HGB CONC 31.5 g/dL (32.0-36.0); MEAN CORPUSCULAR VOLUME 90.5 fL (79-99); MONOCYTES % (AUTO) 7.3 % (3.0-13.0); NEUTROPHILS % (AUTO) 75.1 % (40.0-77.0); PLATELET COUNT (AUTO) 313 K/uL (130-400); RED BLOOD CELL COUNT(AUTO) 3.26 MIL/uL (4.00-5.50); RED CELL DISTRIBUTION WIDTH 13.5 % (11.0-15.5); WHITE BLOOD COUNT (AUTO) 13.3 K/uL (4.8-10.8)
[2020-01-30 05:18] LABS: CREATININE 0.7 mg/dL (0.5-1.5); POTASSIUM 4.2 mmol/L (3.5-5.1)
[2020-01-30] MEDS: DOXYCYCLINE 100MG+NS 250ML 250 ML IV SCH ×2 (05:31→18:27)
[2020-01-30] MEDS: CEFEPIME HCL 2 GM VIAL IVP SCH ×2 (05:31→18:27)
[2020-01-30 05:50] LABS: B-TYPE NATRIURETIC PEPTIDE 73 pg/mL (0-100)
[2020-01-30 08:19] VITALS: BP 131/69
[2020-01-30] MEDS: FAMOTIDINE 20MG TAB 20 MG TAB PO SCH (09:00)
[2020-01-30] MEDS: ENOXAPARIN SODIUM 40 MG/0.4 ML SYRINGE SQ SCH (09:23)
[2020-01-30] MEDS: FUROSEMIDE 20 MG TABLET PO SCH ×3 (09:24→22:07)
[2020-01-30] MEDS: METOPROLOL TARTRATE 25 MG TAB PO SCH ×3 (09:24→22:08)
[2020-01-30] MEDS: CLOPIDOGREL BISULFATE 75 MG TAB PO SCH (09:24)
[2020-01-30] MEDS: VANCOMYCIN 1GM+NS 250ML 250 ML IV SCH ×3 (09:25→22:07)
[2020-01-30 12:38] VITALS: BP 127/71
[2020-01-30 16:42] VITALS: BP 137/64
[2020-01-30 20:19] VITALS: BP 158/82
--- NOTE | 2020-01-30 22:00 | NUR ---
PT REFUSED MEDS. EDUCATED PT ON MEDS, STILL REFUSED, PT STATED SHE FEELS TOO SWOLLEN FROM LEGS AND FEELS HER BODY HAS TO MANY TOXINS TO BE TAKING MORE MEDS. PT WANTS HER FAMILY DOCTOR (UNKNOWN OF NAME) TO COMMUNICATE WITH HOSPITALIST ABOUT HER TREATMENT HERE AT [facility].
[2020-01-30] MEDS: MULTIVITAMIN TABLET PO SCH (22:07)
[2020-01-30 23:06] VITALS: BP 132/62
[2020-01-31 03:46] VITALS: BP 134/64
[2020-01-31 05:22] LABS: HEMATOCRIT 27.7 % (36-48); MEAN CORPUSCULAR HEMOGLOBIN 27.9 pg (27.0-33.0); MEAN CORPUSCULAR HGB CONC 31.4 g/dL (32.0-36.0); MEAN CORPUSCULAR VOLUME 88.8 fL (79-99); PLATELET COUNT (AUTO) 340 K/uL (130-400); RED BLOOD CELL COUNT(AUTO) 3.12 MIL/uL (4.00-5.50); RED CELL DISTRIBUTION WIDTH 13.5 % (11.0-15.5); WHITE BLOOD COUNT (AUTO) 10.4 K/uL (4.8-10.8)
[2020-01-31 05:53] LABS: CARBON DIOXIDE 29 mmol/L (21-32); CHLORIDE 101 mmol/L (101-111); CREATININE 0.8 mg/dL (0.5-1.5); GLOMERULAR FILTR. RATE CALC 75 mL/min (>60); GLUCOSE,RANDOM 117 mg/dL (70-105); PHOSPHORUS 3.3 mg/dL (2.5-4.9); POTASSIUM 3.7 mmol/L (3.5-5.1); SODIUM SERUM 137 mmol/L (136-145); UREA NITROGEN, BLOOD 10 mg/dL (7-18)
[2020-01-31] MEDS: CEFEPIME HCL 2 GM VIAL IVP SCH (06:31)
[2020-01-31] MEDS: DOXYCYCLINE 100MG+NS 250ML 250 ML IV SCH ×2 (06:31→20:56)
[2020-01-31 08:11] VITALS: BP 124/72
[2020-01-31] MEDS: FAMOTIDINE 20MG TAB 20 MG TAB PO SCH (09:50)
[2020-01-31] MEDS: ENOXAPARIN SODIUM 40 MG/0.4 ML SYRINGE SQ SCH (09:50)
[2020-01-31] MEDS: FUROSEMIDE 20 MG TABLET PO SCH ×2 (09:50→20:54)
[2020-01-31] MEDS: METOPROLOL TARTRATE 25 MG TAB PO SCH ×2 (09:51→20:54)
[2020-01-31] MEDS: VANCOMYCIN 1GM+NS 250ML 250 ML IV SCH (09:51)
[2020-01-31] MEDS: CLOPIDOGREL BISULFATE 75 MG TAB PO SCH (09:51)
--- NOTE | 2020-01-31 11:13 | NUR ---
PATIENT TRANSFER TO MED/SURG PATIENT TO BE TRANSFERRED TO MED/SURG, REPORT GIVEN TO MIKI DAVIS AT APPROX 110 HOURS.
[2020-01-31 14:33] VITALS: BP 134/64
[2020-01-31 16:54] VITALS: BP 145/64
[2020-01-31 20:00] VITALS: BP 135/79
[2020-01-31] MEDS: MULTIVITAMIN TABLET PO SCH (20:54)
[2020-02-01] VITALS: BP 142/66
[2020-02-01 04:10] VITALS: BP 121/69
[2020-02-01 08:00] VITALS: BP 124/72
[2020-02-01] MEDS: FAMOTIDINE 20MG TAB 20 MG TAB PO SCH (09:28)
[2020-02-01] MEDS: FUROSEMIDE 20 MG TABLET PO SCH (09:28)
[2020-02-01] MEDS: METOPROLOL TARTRATE 25 MG TAB PO SCH (09:28)
[2020-02-01] MEDS: CLOPIDOGREL BISULFATE 75 MG TAB PO SCH (09:30)
[2020-02-01] MEDS: DOXYCYCLINE 100MG+NS 250ML 250 ML IV SCH (09:31)
[2020-02-01] MEDS: ENOXAPARIN SODIUM 40 MG/0.4 ML SYRINGE SQ SCH (09:34)
[2020-02-01 12:00] VITALS: BP 142/58
[2020-02-01] MEDS ORDERED: FURO20TA6 PO ×2 (12:27)
[2020-02-01] MEDS ORDERED: DOXY100C2 PO ×2 (12:27)
--- NOTE | 2020-02-01 13:41 | NUR ---
DC PLAN HOME, NO HOME OXYGEN REQUIRED Addendum: 02/01/20 at 1342 by ANGIE ALEMAN RN CM Amended: Links added.
== END 2020-02-01 15:19 | disposition home or self-care (01) | DRG 871 ==
LOC: EDH 13:56 → EDHIP 19:04 → 2DH 23:18 → 4CH 01-31 11:02
PROVIDERS: ADMIT Hospitalist; ATTEND Hospitalist
DX: A41.9 Sepsis, unspecified organism (principal); J96.90 Respiratory failure, unspecified, unspecified whether with hypoxia or hypercapnia; J15.6 Pneumonia due to other Gram-negative bacteria; J98.11 Atelectasis; J91.8 Pleural effusion in other conditions classified elsewhere; D64.9 Anemia, unspecified; E66.9 Obesity, unspecified; F02.80 Dementia in other diseases classified elsewhere, unspecified severity, without behavioral disturbance, psychotic disturbance, mood disturbance, and anxiety; G30.9 Alzheimer's disease, unspecified; E87.70 Fluid overload, unspecified; F32.9 Major depressive disorder, single episode, unspecified; I10 Essential (primary) hypertension; Z95.0 Presence of cardiac pacemaker; Z95.3 Presence of xenogenic heart valve; Z68.33 Body mass index [BMI] 33.0-33.9, adult; Z83.3 Family history of diabetes mellitus; Z82.0 Family history of epilepsy and other diseases of the nervous system; Z79.899 Other long term (current) drug therapy; Z80.9 Family history of malignant neoplasm, unspecified; Z98.891 History of uterine scar from previous surgery; Z88.6 Allergy status to analgesic agent; Z88.1 Allergy status to other antibiotic agents; Z88.2 Allergy status to sulfonamides; Z88.8 Allergy status to other drugs, medicaments and biological substances
CPT/HCPCS: 36415; 71045; 71250; 80048; 80053; 80202; 81003; 82550; 83605; 83735; 83880; 84100; 84145; 84484; 85025; 85027; 85610; 85730; 86140; 86738; 87040; 87633; 87635; 87804; 87807; 87880; 93005; 94760; G0378; J0360; J0692; J1170; J1650; J2405; J2543; J3370; J3490; J7050

== ENCOUNTER → 2020-02-23 | Outpatient (CLI) | payer OTHER ==
[~2020-02-23] MED LIST changes: -DIPH-764 PO; +DOXY100C2 PO; +FURO20TA6 PO; -IBUP-2784 PO; -P-EP-94 PO
--- NOTE | 2020-02-23 11:55 | NUR ---
PROCEDURE PATIENT SCHEDULED FOR RT SIDED THORACENTESIS. IMAGES TAKEN AND REVIEWED BY DR Lebron CONROY. SMALL AMOUNT OF FLUID SEEN WITH HIGH RISK OF LUNG PUNCTURE. PROCEDURE CANCELED AND OUTCOME EXPLAINED TO PATIENT. SHE VERBALIZED UNDERSTANDING AND DISCHARGED VIA W/C AT 1145.
== END | disposition home or self-care (01) ==
LOC: RAH 10:00
PROVIDERS: ATTEND Internal Medicine Cardiovascular Disease
DX: J90 Pleural effusion, not elsewhere classified (principal)
CPT/HCPCS: 76604

== ENCOUNTER 2020-02-26 09:43 | Inpatient (IN) | payer OTHER ==
[~2020-02-26] VITALS: Ht 167.6 cm; Wt 89.6 kg
[2020-02-26] MEDS ORDERED: FUROSEMIDE 10 MG/ML 4ML VIAL ONE (10:32)
[2020-02-26 10:43] LABS: BASOPHILS % (AUTO) 0.3 % (0.0-5.0); EOSINOPHILS % (AUTO) 1.8 % (0.0-8.0); HEMATOCRIT 33.6 % (36-48); LYMPHOCYTES % (AUTO) 12.6 % (21.0-51.0); MEAN CORPUSCULAR HEMOGLOBIN 26.5 pg (27.0-33.0); MEAN CORPUSCULAR HGB CONC 31.5 g/dL (32.0-36.0); MONOCYTES % (AUTO) 7.4 % (3.0-13.0); NEUTROPHILS % (AUTO) 77.4 % (40.0-77.0); PLATELET COUNT (AUTO) 515 K/uL (130-400); RED CELL DISTRIBUTION WIDTH 14.2 % (11.0-15.5)
[2020-02-26 11:10] LABS: ALBUMIN 2.4 g/dL (3.5-5.0); BILIRUBIN,TOTAL 0.4 mg/dL (0.2-1.0); TOTAL PROTEIN, SERUM 8.1 g/dL (6.0-8.3)
[2020-02-26 11:23] LABS: B-TYPE NATRIURETIC PEPTIDE 151 pg/mL (0-100)
[2020-02-26 11:35] LABS: INR 1.09 (0.85-1.15); PARTIAL THROMBOPLASTIN TIME 28.7 SEC (26.3-35.5); PROTHROMBIN TIME 11.7 SEC (9.6-11.6)
[2020-02-26 12:07] LABS: APPEARANCE,URINE Clear (CLEAR); BILIRUBIN,URINE Negative (NEGATIVE); COLOR,URINE Yellow (YELLOW); GLUCOSE, URINE (UA) Negative (NEGATIVE); KETONES,URINE Negative (NEGATIVE); LEUKOCYTE ESTERASE ,URINE Negative (NEGATIVE); NITRATE,URINE Negative (NEGATIVE); OCCULT BLOOD,URINE Negative (NEGATIVE); PH,URINE 7.5 (5.0-8.0); PROTEIN,URINE Negative (NEGATIVE)
[2020-02-26] MEDS ORDERED: ZOSYN 3.375GM+NS 50ML 50 ML IV ONE (12:58)
[2020-02-26] MEDS ORDERED: VANCOMYCIN 1.25 GM in SODIUM CHLORIDE 0.9% 250 ML IV ONE (14:00)
[2020-02-26] MEDS ORDERED: FUROSEMIDE 10 MG/ML 2ML VIAL IV SCH (14:45)
[2020-02-26] MEDS ORDERED: ONDANSETRON HCL 4 MG/2 ML VIAL IVP PRN (14:45)
[2020-02-26] MEDS ORDERED: VANCOMYCIN PROTOCOL PER PHARMACY IV SCH (14:45)
[2020-02-26] MEDS ORDERED: BENZONATATE 100 MG CAPSULE PO PRN (14:45)
[2020-02-26] MEDS ORDERED: ACETAMINOPHEN 325 MG TAB PO PRN (14:45)
[2020-02-26] MEDS ORDERED: COMPOUND IV REFRIGERATED 1 EACH IVSOLN MISC PRN (15:30)
[2020-02-26] MEDS ORDERED: MEROPENEM 1 GM VIAL IVP SCH (17:30)
[2020-02-26] MEDS ORDERED: LINEZOLID 600 MG/ISO-OSM 300 ML IV SCH (17:30)
[2020-02-26] MEDS ORDERED: VANCOMYCIN 500MG+NS 100ML 100 ML IV ONE (18:00)
[2020-02-26 20:42] VITALS: BP 139/54
[2020-02-26] MEDS: LINEZOLID 600 MG/ISO-OSM 300 ML IV SCH (20:52)
[2020-02-26] MEDS: MEROPENEM 1 GM VIAL IVP SCH (20:53)
[2020-02-26] MEDS: FAMOTIDINE/PF 20 MG/2 ML VIAL IV SCH (20:53)
[2020-02-26] MEDS: FUROSEMIDE 10 MG/ML 2ML VIAL IV SCH (20:54)
[2020-02-26] MEDS ORDERED: POTASSIUM CHLORIDE 10% ELIXIR 20 MEQ/15 ML UDCUP PO SCH (21:55)
[2020-02-26 23:39] VITALS: BP 139/58
[2020-02-26] MEDS ORDERED: CLOP75TA32 PO (23:54)
[2020-02-26] MEDS ORDERED: MECL-160 PO (23:54)
[2020-02-26] MEDS ORDERED: ESCI10TA54 PO (23:54)
[2020-02-27 04:11] VITALS: BP 119/89
[2020-02-27] MEDS: MEROPENEM 1 GM VIAL IVP SCH (04:52)
[2020-02-27] MEDS: FUROSEMIDE 10 MG/ML 2ML VIAL IV SCH (04:52)
[2020-02-27 05:42] LABS: BASOPHILS % (AUTO) 0.4 % (0.0-5.0); EOSINOPHILS % (AUTO) 0.8 % (0.0-8.0); HEMATOCRIT 31.4 % (36-48); LYMPHOCYTES % (AUTO) 10.4 % (21.0-51.0); MEAN CORPUSCULAR HEMOGLOBIN 26.6 pg (27.0-33.0); MEAN CORPUSCULAR HGB CONC 31.2 g/dL (32.0-36.0); MEAN CORPUSCULAR VOLUME 85.1 fL (79-99); MONOCYTES % (AUTO) 5.9 % (3.0-13.0); NEUTROPHILS % (AUTO) 82.1 % (40.0-77.0); PLATELET COUNT (AUTO) 522 K/uL (130-400); RED BLOOD CELL COUNT(AUTO) 3.69 MIL/uL (4.00-5.50); RED CELL DISTRIBUTION WIDTH 14.4 % (11.0-15.5)
[2020-02-27 05:51] LABS: CREATININE 0.9 mg/dL (0.5-1.5); POTASSIUM 3.5 mmol/L (3.5-5.1)
[2020-02-27] MEDS ORDERED: VANCOMYCIN 750MG + NS 250 ML IV SCH ×2 (06:00)
[2020-02-27 07:00] VITALS: BP 131/75
[2020-02-27] MEDS ORDERED: POTASSIUM CHLORIDE 20 MEQ ERTAB PO SCH (07:45)
[2020-02-27] MEDS ORDERED: FUROSEMIDE 10 MG/ML 2ML VIAL IV SCH (07:45)
--- NOTE | 2020-02-27 07:50 | NUR ---
DR. CECILIA BROOKS AT BEDSIDE. HE SPOKE TO PATIENT'S AND UPDATED HIM ON PLAN OF CARE.
[2020-02-27] MEDS: LINEZOLID 600 MG/ISO-OSM 300 ML IV SCH (08:05)
[2020-02-27] MEDS: ENOXAPARIN SODIUM 30 MG/0.3 ML SQ SCH (08:05)
[2020-02-27] MEDS: FAMOTIDINE/PF 20 MG/2 ML VIAL IV SCH ×2 (08:05→20:39)
[2020-02-27] MEDS: CITALOPRAM 20 MG TABLET PO SCH ×2 (08:26→20:39)
[2020-02-27] MEDS ORDERED: CLOPIDOGREL BISULFATE 75 MG TAB PO SCH (09:00)
--- NOTE | 2020-02-27 09:30 | NUR ---
CONSULTATION CALL WAS MADE TO [facility] ABOUT NEW CONSULTATION. NO ANSWER AT THIS TIME. MESSAGE WAS LEFT WITH RN NAME AND CALL BACK NUMBER.
--- NOTE | 2020-02-27 09:35 | NUR ---
CONSULTATION [facility] AWARE OF CONSULTATION.
--- NOTE | 2020-02-27 10:00 | NUR ---
DR. CHOLO EMMANUEL AT BEDSIDE TO EVALUATE PATIENT. ORDERS WERE ENTERED BY ASHLEY PALMA.
--- NOTE | 2020-02-27 10:55 | NUR ---
THORACENTESIS DR. KENNY STATED PATIENT WILL NOT BE TAKEN DOWN TO IR AT THIS TIME FOR THORACENTESIS. STATED IT CAN BE DONE AT BEDSIDE BY SILVER DESIGNER IF NEEDED. HE MENTIONED PATIENT CAME IN OUTPATIENT ON LAST WEDNESDAY FOR THORACENTESIS BUT WAS NOT DONE BECAUSE PATIENT DID NOT HAVE ENOUGH FLUID.
--- NOTE | 2020-02-27 11:00 | NUR ---
DR.AKINYEMI DR. NUNN AT BEDSIDE TO ASSESS PATIENT. ORDER FOR CT CHEST WITHOUT CONTRAST WAS ORDERED. ENTERED INTO SYSTEM.
--- NOTE | 2020-02-27 11:06 | NUR ---
RE:THORACENTESIS ORDER SPOKE TO Dr. SHAW ABOUT ORDERS FOR A THORACENTESIS. DR. SHAW STATES "PATIENT HAS A SURGEON PARTNER ON CASE WHICH CAN DO A THORACENTESIS AT THE BEDSIDE TO CONTAIN INFECTION IF PATIENT DOES HAVE INFECTIOUS PROCESS." CALLED AND SPOKE TO JOSE CRUZ KENNEDY RN REGARDING DR. SHAW'S ORDERS.
[2020-02-27 11:30] VITALS: BP 137/77
--- NOTE | 2020-02-27 11:46 | NUR ---
chart reviewed, acf uploaded into one content Addendum: 02/27/20 at 1146 by ANGIE ALEMAN RN CM Amended: Links added.
--- NOTE | 2020-02-27 12:30 | NUR ---
THORACENTESIS SPOKE TO ASHLEY GONZALEZ AND DR. EMMANUEL AT THIS TIME TO NOTIFY THEM THAT THORACENTESIS HAS BEEN CANCELLED IN IR DUE TO PENDING RESULTS. THEY WERE MADE AWARE THAT THORACENTESIS WAS UNABLE TO BE DONE LAST WEDNESDAY OUTPATIENT PROCEDURE BECAUSE THERE WAS NOT ENOUGH FLUID TO REMOVE. ALSO NOTIFIED THEM THAT CT CHEST WAS ORDERED BY DR. NUNN. ASHLEY GONZALEZ VERBALIZED UNDERSTANDING; NO FURTHER ORDERS WERE GIVEN.
--- NOTE | 2020-02-27 14:05 | NUR ---
CT SCAN PATIENT BROUGHT BACK FROM CT AT THIS TIME.
--- NOTE | 2020-02-27 16:17 | NUR ---
INITIAL SPOKE TO ON THE PHONE- LIVES WITH HIM, FAUSTINA- HE STATES DHE HAS ALZHEIMERS AND GETS RESTLESS, IS DEPENDENT ON SPOUSE FOR DAILY CARE NEEDS, NO DME, AMBULATES WITH HUSBANDS SUPPORT, SHOWER BENCH, HOME SAFE AND ACCESSIBLE- SPOUSE STATES HAS HAD TO CALM PATIENT DOWN ON LAST ADMIT AND WANTS THE NURSE TO KOW HE CAN BE CALLED AGAIN IF SHE GETS RESTLESS. DCP IS HOME Addendum: 02/27/20 at 1623 by ANGIE ALEMAN RN CM Amended: Links added.
[2020-02-27 19:25] VITALS: BP 138/70
[2020-02-27] MEDS: METOPROLOL TARTRATE 25 MG TAB PO SCH (20:39)
[2020-02-27] MEDS: ZYVOX 600 MG TAB PO SCH (20:39)
[2020-02-28 03:42] VITALS: BP 135/96
[2020-02-28 05:55] LABS: BASOPHILS % (AUTO) 0.4 % (0.0-5.0); EOSINOPHILS % (AUTO) 2.3 % (0.0-8.0); HEMATOCRIT 32.1 % (36-48); LYMPHOCYTES % (AUTO) 14.6 % (21.0-51.0); MEAN CORPUSCULAR HEMOGLOBIN 25.9 pg (27.0-33.0); MEAN CORPUSCULAR HGB CONC 30.8 g/dL (32.0-36.0); NEUTROPHILS % (AUTO) 76.3 % (40.0-77.0); PLATELET COUNT (AUTO) 503 K/uL (130-400); RED BLOOD CELL COUNT(AUTO) 3.82 MIL/uL (4.00-5.50); RED CELL DISTRIBUTION WIDTH 14.4 % (11.0-15.5); WHITE BLOOD COUNT (AUTO) 11.8 K/uL (4.8-10.8)
[2020-02-28 06:14] LABS: CARBON DIOXIDE 34 mmol/L (21-32); CHLORIDE 95 mmol/L (101-111); GLOMERULAR FILTR. RATE CALC 58 mL/min (>60); GLUCOSE,RANDOM 114 mg/dL (70-105); PHOSPHORUS 3.5 mg/dL (2.5-4.9); SODIUM SERUM 136 mmol/L (136-145); UREA NITROGEN, BLOOD 15 mg/dL (7-18)
[2020-02-28 06:39] LABS: B-TYPE NATRIURETIC PEPTIDE 82 pg/mL (0-100)
--- NOTE | 2020-02-28 08:00 | NUR ---
ASSESSMENT PT IS AAOX3 DENIES CP DENIES SOB DENIES NV NO COMPLAINTS RESTING IN BED. NO VISIBLE SIGNS OF DISTRESS NOTED, CALL LIGHT WITHIN REACH.
[2020-02-28] MEDS: FAMOTIDINE/PF 20 MG/2 ML VIAL IV SCH ×2 (08:04→20:49)
[2020-02-28] MEDS: METOPROLOL TARTRATE 25 MG TAB PO SCH ×2 (08:04→20:49)
[2020-02-28] MEDS: ZYVOX 600 MG TAB PO SCH ×2 (08:04→20:49)
[2020-02-28] MEDS: ENOXAPARIN SODIUM 30 MG/0.3 ML SQ SCH (08:05)
[2020-02-28 08:45] VITALS: BP 139/80
[2020-02-28] MEDS ORDERED: FUROSEMIDE 20 MG TABLET PO SCH (09:00)
[2020-02-28] MEDS ORDERED: CLOPIDOGREL BISULFATE 75 MG TAB PO SCH (09:00)
[2020-02-28] MEDS: ASCORBIC ACID 500 MG TAB PO SCH (10:59)
[2020-02-28] MEDS: FERROUS SULFATE 325 MG TABLET.DR PO SCH ×2 (10:59→20:49)
[2020-02-28 12:03] VITALS: BP 132/72
[2020-02-28] MEDS ORDERED: IBUP-2070 PO (13:20)
[2020-02-28] MEDS ORDERED: POTA-9 PO (13:20)
--- NOTE | 2020-02-28 13:22 | NUR ---
FC DC CATH TIP INTACT. NO COMPLAINTS. DTV IN 8HRS.
[2020-02-28 16:20] VITALS: BP 134/63
[2020-02-28 20:03] VITALS: BP 113/76
[2020-02-28] MEDS: CITALOPRAM 20 MG TABLET PO SCH (20:49)
[2020-02-28] MEDS: DOCUSATE SODIUM 100 MG CAP PO SCH (20:49)
[2020-02-29 00:10] VITALS: BP 124/68
[2020-02-29 05:11] LABS: BASOPHILS % (AUTO) 0.5 % (0.0-5.0); EOSINOPHILS % (AUTO) 3.4 % (0.0-8.0); HEMATOCRIT 31.8 % (36-48); LYMPHOCYTES % (AUTO) 18.8 % (21.0-51.0); MEAN CORPUSCULAR HEMOGLOBIN 26.5 pg (27.0-33.0); MEAN CORPUSCULAR HGB CONC 31.4 g/dL (32.0-36.0); MEAN CORPUSCULAR VOLUME 84.4 fL (79-99); MONOCYTES % (AUTO) 6.2 % (3.0-13.0); NEUTROPHILS % (AUTO) 70.7 % (40.0-77.0); PLATELET COUNT (AUTO) 497 K/uL (130-400); RED BLOOD CELL COUNT(AUTO) 3.77 MIL/uL (4.00-5.50); RED CELL DISTRIBUTION WIDTH 14.5 % (11.0-15.5); WHITE BLOOD COUNT (AUTO) 9.1 K/uL (4.8-10.8)
[2020-02-29 05:29] LABS: POTASSIUM 3.8 mmol/L (3.5-5.1)
[2020-02-29 05:36] LABS: % IRON SATURATION 17.3 % (22-44)
[2020-02-29 05:47] LABS: B-TYPE NATRIURETIC PEPTIDE 126 pg/mL (0-100)
[2020-02-29 06:30] VITALS: BP 160/88
[2020-02-29] MEDS: FAMOTIDINE/PF 20 MG/2 ML VIAL IV SCH ×2 (07:47→20:53)
[2020-02-29] MEDS: DOCUSATE SODIUM 100 MG CAP PO SCH ×2 (07:47→20:53)
[2020-02-29] MEDS: FUROSEMIDE 10 MG/ML 2ML VIAL IV SCH ×2 (07:48→20:53)
[2020-02-29] MEDS: ASCORBIC ACID 500 MG TAB PO SCH (07:48)
[2020-02-29] MEDS: ZYVOX 600 MG TAB PO SCH ×2 (07:49→20:53)
[2020-02-29] MEDS: METOPROLOL TARTRATE 25 MG TAB PO SCH ×2 (07:49→20:53)
[2020-02-29] MEDS: FERROUS SULFATE 325 MG TABLET.DR PO SCH ×2 (07:49→20:53)
--- NOTE | 2020-02-29 08:00 | NUR ---
ASSESSMENT PT AAOX3 DENIES CP DENIES SOB DENIES NV WHILE AT REST. NO COMPLAINTS AT THIS TIME. CALL LIGHT WITHIN REACH. PATIENT IS OFF ANTICOAGS FOR TODAY FOR PLANNED THORACENTESIS TODAY BY DR SOUTH AT BEDSIDE.
[2020-02-29 09:01] VITALS: BP 133/49
[2020-02-29 12:54] VITALS: BP 124/66
--- NOTE | 2020-02-29 14:30 | NUR ---
DR BRANNON SHAFER SAW PATIENT. NOT ENOUGH FLUID SEEN VIA US FOR THORACENTESIS.
[2020-02-29 16:16] VITALS: BP 137/64
--- NOTE | 2020-02-29 16:50 | NUR ---
TRANSFER TO ROOM 420 REPORT GIVEN TO FRANDY DAVIS, ALL BELONGINGS TAKEN WITH PATIENT. NOTIFIED.
[2020-02-29 20:08] VITALS: BP 119/51
[2020-02-29] MEDS: CITALOPRAM 20 MG TABLET PO SCH (20:53)
[2020-03-01] VITALS (7 sets, daily range): BP systolic 112–152; BP diastolic 48–80
[2020-03-01 03:59] LABS: BASOPHILS % (AUTO) 0.4 % (0.0-5.0); EOSINOPHILS % (AUTO) 3.8 % (0.0-8.0); HEMATOCRIT 30.7 % (36-48); LYMPHOCYTES % (AUTO) 24.4 % (21.0-51.0); MEAN CORPUSCULAR HEMOGLOBIN 25.7 pg (27.0-33.0); MEAN CORPUSCULAR HGB CONC 30.9 g/dL (32.0-36.0); MEAN CORPUSCULAR VOLUME 83.2 fL (79-99); MONOCYTES % (AUTO) 6.4 % (3.0-13.0); NEUTROPHILS % (AUTO) 64.5 % (40.0-77.0); PLATELET COUNT (AUTO) 462 K/uL (130-400); RED BLOOD CELL COUNT(AUTO) 3.69 MIL/uL (4.00-5.50); RED CELL DISTRIBUTION WIDTH 14.5 % (11.0-15.5); WHITE BLOOD COUNT (AUTO) 8.1 K/uL (4.8-10.8)
[2020-03-01 04:21] LABS: ALBUMIN 2.3 g/dL (3.5-5.0); MAGNESIUM 1.7 mg/dL (1.80-2.40); PHOSPHORUS 3.7 mg/dL (2.5-4.9); POTASSIUM 3.5 mmol/L (3.5-5.1); THYROID STIMULATING HORMONE 1.66 uIU/mL (0.36-3.74)
[2020-03-01] MEDS ORDERED: POTASSIUM CHLORIDE 20MEQ/100ML 100 ML IV PRN (05:30)
[2020-03-01] MEDS ORDERED: POTASSIUM CHLORIDE 10% ELIXIR 20 MEQ/15 ML UDCUP PO PRN (05:30)
[2020-03-01] MEDS ORDERED: MAGNESIUM 2GM PREMIX 50ML 50 ML IV PRN (05:30)
[2020-03-01] MEDS ORDERED: LIDOCAINE HCL-MPF 1% 2ML VIAL IV PRN (05:30)
[2020-03-01] MEDS: FUROSEMIDE 10 MG/ML 2ML VIAL IV SCH ×2 (06:30→18:50)
--- NOTE | 2020-03-01 08:15 | NUR ---
AM ASSESSMENT PT SITTING IN CHAIR, WATCHING TV. A/O X 2. HX OF ALZHEIMERS/DEMENTIA. NO SOB. NO DISTRESS NOTED. DENIES CHEST PAIN OR DISCOMFORT. DENIES PALPITATIONS. TELE: AV PACED. DENIES N/V AND/OR DIARRHEA. UP W/ASSISTANCE. INSTRUCTED TO CALL FOR ASSISTANCE. CALL JENNA W/IN REACH.
[2020-03-01] MEDS: FERROUS SULFATE 325 MG TABLET.DR PO SCH ×2 (08:46→20:52)
[2020-03-01] MEDS: ASCORBIC ACID 500 MG TAB PO SCH (08:46)
[2020-03-01] MEDS: FAMOTIDINE 20MG TAB 20 MG TAB PO SCH ×2 (08:46→20:52)
[2020-03-01] MEDS: ZYVOX 600 MG TAB PO SCH ×2 (08:47→20:52)
[2020-03-01] MEDS: POTASSIUM CHLORIDE 20 MEQ ERTAB PO PRN ×3 (08:47→22:47)
[2020-03-01] MEDS: CLOPIDOGREL BISULFATE 75 MG TAB PO SCH (08:47)
[2020-03-01] MEDS: METOPROLOL TARTRATE 25 MG TAB PO SCH ×2 (08:47→20:53)
[2020-03-01] MEDS: DOCUSATE SODIUM 100 MG CAP PO SCH ×2 (08:47→20:52)
[2020-03-01] MEDS: CITALOPRAM 20 MG TABLET PO SCH (20:52)
--- NOTE | 2020-03-01 22:00 | NUR ---
PAIN PT C/O PAIN TO LEFT ANTERIOR CHEST THAT RADIATES TO THE SHOULDER AND TO THE MID UPPER BACK. PT REPORTS THAT CHANGING POSITION HELPS TO ALLEVIATE THE PAIN. ASSISTED PT TO THE CHAIR. STATES THAT THE PAIN GOES AWAY WHEN SHE SITS UPRIGHT. WILL CONTINUE TO MONITOR. PT REMAINS SITTING IN CHAIR- CALL LIGHT ON LAPS. REINFORCED TO CALL FOR ASSISTANCE WHEN READY TO RETURN TO BED, PT VERBALIZED AGREEMENT. Addendum: 03/01/20 at 2334 by LULU HERRERA RN RN Amended: Links added.
[2020-03-02 03:57] VITALS: BP 127/59
[2020-03-02 05:18] LABS: CREATININE 0.9 mg/dL (0.5-1.5); POTASSIUM 4.1 mmol/L (3.5-5.1)
[2020-03-02] MEDS: FUROSEMIDE 10 MG/ML 2ML VIAL IV SCH (07:10)
--- NOTE | 2020-03-02 08:00 | NUR ---
AM ASSESSMENT PT SITING IN CARDIAC RECLINER, WATCHING TV. A/O X 2-3. HX OF ALZHEIMER'S/DEMENTIA. NO SOB. NO DISTRESS NOTED. DENIES CHEST PAIN OR DISCOMFORT. TELE: PACED. DENIES N/V AND/OR DIARRHEA. EDEMA BLE. LLE CELLULITIS. PT ASKED TO ELEVATED BLE WHILE IN RECLINER. UP W/ASSISTANCE. INSTRUCTED TO CALL FOR ASSISTANCE. CALL JENNA W/IN REACH.
[2020-03-02] MEDS: ZYVOX 600 MG TAB PO SCH ×2 (08:26→20:50)
[2020-03-02] MEDS: CLOPIDOGREL BISULFATE 75 MG TAB PO SCH (08:27)
[2020-03-02] MEDS: ASCORBIC ACID 500 MG TAB PO SCH (08:27)
[2020-03-02] MEDS: DOCUSATE SODIUM 100 MG CAP PO SCH ×2 (08:27→20:49)
[2020-03-02] MEDS: FAMOTIDINE 20MG TAB 20 MG TAB PO SCH ×2 (08:27→20:49)
[2020-03-02] MEDS: FERROUS SULFATE 325 MG TABLET.DR PO SCH ×2 (08:27→20:49)
[2020-03-02 08:28] VITALS: BP 118/51
[2020-03-02] MEDS: METOPROLOL TARTRATE 25 MG TAB PO SCH ×2 (08:28→20:50)
[2020-03-02 11:11] VITALS: BP 126/41
[2020-03-02] MEDS: FUROSEMIDE 10 MG/ML 4ML VIAL IV SCH ×2 (16:28→23:07)
[2020-03-02 16:34] VITALS: BP 126/41
[2020-03-02] MEDS: ALBUMIN (HUMAN) 25% 50 ML IV SCH ×2 (17:22→23:08)
[2020-03-02 20:12] VITALS: BP 112/58
[2020-03-02] MEDS: CITALOPRAM 20 MG TABLET PO SCH (20:50)
[2020-03-02 23:14] VITALS: BP 115/56
--- NOTE | 2020-03-03 02:30 | NUR ---
IS RESPIRATORY PROVIDED INITIAL IS EDUCATION. PT GOAL IS 2000. PT REACHED 600 AT THIS TIME. ENCOURAGED TO DO IS EVERY HOUR WHILE AWAKE.
[2020-03-03 03:21] VITALS: BP 110/49
--- NOTE | 2020-03-03 03:53 | NUR ---
PATIENT SLEEPING IN RECLINER. DENIES CHEST PAIN. A/OX3, FORGETFUL. HX OF DEMENTIA. PATIENT AMBULATING TO RESTROOM WITHOUT ASSIST. SOB NOTICED WITH EXERTION. PITTING EDEMA TO BLE. REDNESS/ CELLULITIS TO LE. TOLERATING PO ANTIBIOTICS. DENIES N/V/D.
[2020-03-03 05:19] LABS: HEMATOCRIT 33.4 % (36-48); MEAN CORPUSCULAR HEMOGLOBIN 25.9 pg (27.0-33.0); MEAN CORPUSCULAR HGB CONC 31.1 g/dL (32.0-36.0); MEAN CORPUSCULAR VOLUME 83.3 fL (79-99); PLATELET COUNT (AUTO) 455 K/uL (130-400); RED BLOOD CELL COUNT(AUTO) 4.01 MIL/uL (4.00-5.50); RED CELL DISTRIBUTION WIDTH 14.7 % (11.0-15.5); WHITE BLOOD COUNT (AUTO) 6.3 K/uL (4.8-10.8)
[2020-03-03 05:30] LABS: POTASSIUM 4.1 mmol/L (3.5-5.1)
[2020-03-03 05:34] LABS: BASOPHILS % (MANUAL) 2 % (0-2); EOSINOPHILS % (MANUAL) 2 % (1-6); LYMPHOCYTES % (MANUAL) 24 % (22-44); MAN.DIFF COMMENT-IMPRESSION MANUAL DIFFERENTIAL; MONOCYTES % (MANUAL) 4 % (2-9); PLATELET MORPHOLOGY COMMENT SLIGHT INCREASED; SEGMENTED NEUTROPHILS % 68 % (40-70)
[2020-03-03 05:51] LABS: B-TYPE NATRIURETIC PEPTIDE 74 pg/mL (0-100)
[2020-03-03] MEDS: ALBUMIN (HUMAN) 25% 50 ML IV SCH (06:28)
[2020-03-03] MEDS: FUROSEMIDE 10 MG/ML 4ML VIAL IV SCH (06:29)
[2020-03-03 07:11] VITALS: BP 129/58
--- NOTE | 2020-03-03 07:45 | NUR ---
AM ASSESSMENT PT SITTING IN RECLINER, WATCHING TV. A/O X 2-3. HX OF ALZHEIMER'S. NO SOB. NO DISTRESS NOTED. DENIES CHEST PAIN OR DISCOMFORT. DENIES PALPITATIONS. TELE: PACED. DENIES N/V AND/OR DIARRHEA. BLE EDEMA. UP W/ASSISTANCE. CALL JENNA W/IN REACH.
[2020-03-03] MEDS: ZYVOX 600 MG TAB PO SCH ×2 (08:01→20:15)
[2020-03-03] MEDS: DOCUSATE SODIUM 100 MG CAP PO SCH ×2 (08:02→20:15)
[2020-03-03] MEDS: ASCORBIC ACID 500 MG TAB PO SCH (08:02)
[2020-03-03] MEDS: FAMOTIDINE 20MG TAB 20 MG TAB PO SCH ×2 (08:02→20:14)
[2020-03-03] MEDS: CLOPIDOGREL BISULFATE 75 MG TAB PO SCH (08:02)
[2020-03-03] MEDS: METOPROLOL TARTRATE 25 MG TAB PO SCH ×2 (08:02→20:15)
[2020-03-03] MEDS: FERROUS SULFATE 325 MG TABLET.DR PO SCH ×2 (08:02→20:15)
[2020-03-03 10:29] VITALS: BP 132/69
--- NOTE | 2020-03-03 11:45 | NUR ---
STATUS PT SITTING IN RECLINER. PT HAVING EPISTAXIS FROM RT NARE. GAUZE & PRESSURE APPLIED TO RT NARE. BLEEDING STOPPED. GAUZE REMOVED. WILL CONTINUE TO MONITOR.
[2020-03-03] MEDS ORDERED: CETIRIZINE HCL 5 MG TABLET PO SCH (14:00)
[2020-03-03] MEDS ORDERED: FUROSEMIDE 10 MG/ML 4ML VIAL IV SCH (14:00)
[2020-03-03] MEDS ORDERED: ALBUMIN (HUMAN) 25% 50 ML IV SCH (14:00)
[2020-03-03 15:45] VITALS: BP 129/61
[2020-03-03 19:32] VITALS: BP 131/60
[2020-03-03] MEDS: CITALOPRAM 20 MG TABLET PO SCH (20:15)
[2020-03-03 23:27] VITALS: BP 116/64
[2020-03-04 03:58] VITALS: BP 123/66
[2020-03-04 05:29] LABS: POTASSIUM 3.8 mmol/L (3.5-5.1)
[2020-03-04 07:45] VITALS: BP 136/64
[2020-03-04] MEDS: ZYVOX 600 MG TAB PO SCH (08:06)
[2020-03-04] MEDS ORDERED: FUROSEMIDE 40 MG TABLET PO SCH (09:00)
[2020-03-04] MEDS ORDERED: CETIRIZINE HCL 5 MG TABLET PO SCH (09:00)
[2020-03-04] MEDS: METOPROLOL TARTRATE 25 MG TAB PO SCH (09:36)
[2020-03-04] MEDS: FERROUS SULFATE 325 MG TABLET.DR PO SCH (09:37)
[2020-03-04] MEDS: CLOPIDOGREL BISULFATE 75 MG TAB PO SCH (09:37)
[2020-03-04] MEDS: DOCUSATE SODIUM 100 MG CAP PO SCH (09:37)
[2020-03-04] MEDS: FAMOTIDINE 20MG TAB 20 MG TAB PO SCH (09:37)
[2020-03-04] MEDS: ASCORBIC ACID 500 MG TAB PO SCH (09:37)
[2020-03-04 12:00] VITALS: BP 134/78
[2020-03-04 16:00] VITALS: BP 113/52
[2020-03-04] MEDS ORDERED: ASCO500T20 PO (17:02)
[2020-03-04] MEDS ORDERED: FURO40TA7 PO (17:02)
[2020-03-04] MEDS ORDERED: FERR324T4 PO (17:02)
--- NOTE | 2020-03-04 19:58 | NUR ---
patient leaving via wheelchair with waiting in ER lobby. explained Discharge instructions and follow up with PCP and DR Mendes to both patient and . Removed IV or left hand prior to DC. Patient stable, good, no distress noted.
== END 2020-03-04 20:05 | disposition home or self-care (01) | DRG 602 ==
LOC: EDH 09:43 → EDHIP 14:30 → 2DH 20:14 → 4CH 02-29 16:26
PROVIDERS: ADMIT Internal Medicine; ATTEND Internal Medicine
PROC: 0W9B3ZZ Drainage of Left Pleural Cavity, Percutaneous Approach (ICD-10-PCS; principal; 2020-03-03)
DX: L03.116 Cellulitis of left lower limb (principal); J18.1 Lobar pneumonia, unspecified organism; J96.01 Acute respiratory failure with hypoxia; I50.33 Acute on chronic diastolic (congestive) heart failure; I31.3 Pericardial effusion (noninflammatory); E87.3 Alkalosis; G81.91 Hemiplegia, unspecified affecting right dominant side; J98.11 Atelectasis; J91.8 Pleural effusion in other conditions classified elsewhere; I11.0 Hypertensive heart disease with heart failure; L03.115 Cellulitis of right lower limb; F02.80 Dementia in other diseases classified elsewhere, unspecified severity, without behavioral disturbance, psychotic disturbance, mood disturbance, and anxiety; G30.9 Alzheimer's disease, unspecified; D72.828 Other elevated white blood cell count; E87.6 Hypokalemia; F32.9 Major depressive disorder, single episode, unspecified; D50.9 Iron deficiency anemia, unspecified; E66.9 Obesity, unspecified; E78.5 Hyperlipidemia, unspecified; G47.33 Obstructive sleep apnea (adult) (pediatric); I45.9 Conduction disorder, unspecified; R53.81 Other malaise; S30.1XXA Contusion of abdominal wall, initial encounter; J98.6 Disorders of diaphragm; R04.0 Epistaxis; Z20.828 Contact with and (suspected) exposure to other viral communicable diseases; D47.3 Essential (hemorrhagic) thrombocythemia; Z68.31 Body mass index [BMI] 31.0-31.9, adult; Y93.89 Activity, other specified; Y92.89 Other specified places as the place of occurrence of the external cause; Y99.8 Other external cause status; Z79.02 Long term (current) use of antithrombotics/antiplatelets; Z79.899 Other long term (current) drug therapy; Z95.3 Presence of xenogenic heart valve; Z88.6 Allergy status to analgesic agent; Z88.2 Allergy status to sulfonamides; Z88.8 Allergy status to other drugs, medicaments and biological substances; Z87.01 Personal history of pneumonia (recurrent); Z95.0 Presence of cardiac pacemaker; Z83.3 Family history of diabetes mellitus; Z81.8 Family history of other mental and behavioral disorders; Z82.0 Family history of epilepsy and other diseases of the nervous system; Z80.9 Family history of malignant neoplasm, unspecified
CPT/HCPCS: 36415; 71045; 71046; 71047; 71250; 76604; 80048; 80053; 81003; 82040; 82550; 83540; 83550; 83605; 83735; 83880; 84100; 84145; 84443; 84484; 85025; 85045; 85610; 85730; 87040; 87633; 87635; 87804; 93005; 93970; G0378; J1650; J1940; J2020; J2185; J2543; J3370; J3475; J3490; J7050; P9047

== ENCOUNTER → 2020-05-02 | Outpatient (CLI) | payer OTHER ==
[~2020-05-02] MED LIST changes: +ASCO500T20 PO; +CLOP75TA32 PO; -DOXY100C2 PO; +ESCI10TA54 PO; +FERR324T4 PO; +FURO40TA7 PO; +MECL-160 PO; +POTA-9 PO; -TEA30SPR TP; -TRAZ-185 PO; -milk thistle PO
== END | disposition home or self-care (01) ==
LOC: SHCH 07:34
PROVIDERS: ATTEND Internal Medicine Cardiovascular Disease
DX: I35.1 Nonrheumatic aortic (valve) insufficiency (principal); Z95.2 Presence of prosthetic heart valve
CPT/HCPCS: 93306

== ENCOUNTER → 2020-12-02 | Outpatient (CLI) | payer OTHER ==
[~2020-12-02] MED LIST changes: +CEFAZOLIN SODIUM 1 GM VIAL ONE; +ESCI-8 PO; -ESCI10TA54 PO; +TRANEXAMIC ACID 1000MG/10ML ONE
== END | disposition home or self-care (01) ==
LOC: SHCH 13:56
PROVIDERS: ATTEND Internal Medicine Cardiovascular Disease
DX: Z95.2 Presence of prosthetic heart valve (principal); R06.02 Shortness of breath
CPT/HCPCS: 93306; 93356; J0690; J3490